=== PATIENT | male | born 1985 | race Caucasian/White ===

== ENCOUNTER 2022-11-21 00:16 | Emergency (ER) | payer BC, SELFPAY ==
[2022-11-21 00:18] VITALS: BP 153/101; PULSE 85; RESP 18; TEMP 36.8; O2SAT 97; BMI 31.5
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
--- NOTE | 2022-11-21 00:55 | CT_ITS ---
The [address] [address] Patient Name: ESTRADA REINA MRN: [id number] date: 1985 Sex: M Assigned Patient Location: ER Current Patient Location: ER Accession/Order Number: [id number] Exam Date: 11/21/2022 01:20 Report Date: 11/21/2022 01:49 At the request of: LORIE MARTINEZ Procedure: CT chest w con EXAMINATION: CT chest w con HISTORY: trauma COMPARISON: No relevant comparison available. TECHNIQUE: Multi-planar CT images were obtained without and/or with IV contrast as indicated by examination type. Axial, Coronal, and Sagittal images. Dose reduction techniques were achieved by using automated exposure control and/or adjustment of mA and/or kV according to patient size and/or use of iterative reconstruction technique. FINDINGS: LUNGS: No visible pulmonary disease. PLEURA: No mass, effusion, or pneumothorax. VASCULATURE: No abnormality. HELENE: No mass or adenopathy. MEDIASTINUM: No mass or adenopathy. CARDIAC: No enlargement, pericardial thickening, or significant calcification. AORTA: No aneurysm or dissection. CHEST WALL: No mass or axillary adenopathy. BONES: Nondisplaced fracture through body of left scapula. LIMITED ABDOMEN: No suspicious findings Limited images of the upper abdomen. OTHER: Negative. CT/CT chest w con IMPRESSION: 1. Acute, nondisplaced left scapular fracture. Electronically authenticated by: JAZIEL VIDALES Date: 11/21/2022 01:49
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
--- NOTE | 2022-11-21 00:55 | CT_ITS ---
The [address] [address] Patient Name: ESTRADA REINA MRN: [id number] date: 1985 Sex: M Assigned Patient Location: ER Current Patient Location: ER Accession/Order Number: [id number] Exam Date: 11/21/2022 01:20 Report Date: 11/21/2022 01:53 At the request of: LORIE MARTINEZ Procedure: CT cervical spine wo con EXAMINATION: CT cervical spine wo con HISTORY: trauma COMPARISON: No relevant comparison available. TECHNIQUE: Axial, Coronal, and Sagittal images were created without IV contrast. Dose reduction techniques were achieved by using automated exposure control and/or adjustment of mA and/or kV according to patient size and/or use of iterative reconstruction technique. FINDINGS: VERTEBRAL BODIES: Reversal of the normal lordotic curvature. No fracture or spondylolisthesis. FACET JOINTS: No disruption or abnormal widening. DISCS: Mild degenerative disc disease C5-C6, C6-C7. CENTRAL CANAL: Mild narrowing C6-C7 secondary to degenerative disc disease. No evidence of hemorrhage. PARASPINAL AREA: No visible mass. CT/CT cervical spine wo con IMPRESSION: 1. No appreciable acute abnormality. Mild degenerative disc disease of lower cervical spine. 2. Reversal normal lordotic curvature; positioning versus muscle spasm. Electronically authenticated by: JAZIEL VIDALES Date: 11/21/2022 01:53
[2022-11-21] MEDS: 0.9 % SODIUM CHLORIDE 1,000 ML 999 ML IV (01:11)
[2022-11-21] MEDS: FENTANYL CITRATE/PF 100 MCG/2 ML VIAL 50 MCG IV (01:11)
[2022-11-21 01:17] LABS: Basophils Absolute Auto 0.1 10^3/uL (0.0-0.1); Basophils Percent Auto 0.5 % (0.2-2.0); Eosinophils Absolute Auto 0.1 10^3/uL (0.0-0.7); Hematocrit 40.5 % (42.0-54.0); Hemoglobin 13.6 g/dL (14.0-18.0); Immature Granulocytes Abs Auto 0.03 10^3/uL (0.00-0.03); Immature Granulocytes Pct Auto 0.2 % (0.0-0.5); Lymphocytes Absolute Auto 2.4 10^3/uL (1.2-3.8); Mean Corpuscular HGB Conc 33.6 g/dL (29.9-35.2); Mean Corpuscular Hemoglobin 30.2 pg (25.9-34.0); Mean Platelet Volume 9.3 fL (9.5-13.5); Monocytes Absolute Auto 0.9 10^3/uL (0.3-0.8); Monocytes Percent Auto 7.8 % (1.7-12.0); Neutrophils Absolute Auto 8.5 10^3/uL (1.4-6.5); Neutrophils Percent Auto 70.5 % (43.0-75.0); Platelet Count 315 10^3/uL (150-450); Red Cell Distribution Width 13.6 % (11.0-15.0)
[2022-11-21 01:30] LABS: Alanine Aminotransferase 26 U/L (16-63); Albumin Globulin Ratio 1.2; Albumin Level 4.1 g/dL (3.4-5.0); Alkaline Phosphatase 55 U/L (46-116); Anion Gap 8.5; Aspartate Amino Transferase 30 U/L (15-37); BUN Creatinine Ratio 10.7; Bilirubin Total 0.4 mg/dL (0.2-1.0); Carbon Dioxide 28.3 mmol/L (21.0-32.0); Chloride 100 mmol/L (98-107); Estimated GFR (African America >60 (>=60); Estimated GFR (Non-African Ame 57 (>=60); Globulin 3.5 g/dL; Glucose 104 mg/dL (74-106); Potassium 3.8 mmol/L (3.5-5.1); Sodium 133 mmol/L (136-145); Total Protein 7.6 g/dL (6.4-8.2)
[2022-11-21 01:33] LABS: Lactate/Lactic Acid 0.8 mmol/L (0.4-2.0)
== END 2022-11-21 02:43 | disposition home or self-care (01) ==
PROVIDERS: Emergency Provider Internal Medicine; PCP Nurse Practitioner
DX: S42.102A Fracture of unspecified part of scapula, left shoulder, initial encounter for closed fracture (principal); V86.59XA Driver of other special all-terrain or other off-road motor vehicle injured in nontraffic accident, initial encounter; F17.210 Nicotine dependence, cigarettes, uncomplicated
CPT/HCPCS: 36415; 71260; 72125; 73030; 80053; 83605; 85025; 96374; 99285; Q9967

== ENCOUNTER 2023-09-09 02:32 | Emergency (ER) | payer BC, SELFPAY ==
[2023-09-09] VITALS (8 sets, daily range): BP systolic 100–163; BP diastolic 53–102; PULSE 149; TEMP 38; O2SAT 91–96
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
[2023-09-09] MEDS: LORAZEPAM 2 MG/ML VIAL IM (02:40)
[2023-09-09] MEDS: ZIPRASIDONE MESYLATE 20 MG VIAL IM (02:40)
[2023-09-09 03:26] LABS: Basophils Absolute Auto 0.1 10^3/uL (0.0-0.1); Basophils Percent Auto 0.6 % (0.2-2.0); Eosinophils Absolute Auto 0.1 10^3/uL (0.0-0.7); Hemoglobin 13.4 g/dL (14.0-18.0); Immature Granulocytes Abs Auto 0.04 10^3/uL (0.00-0.03); Immature Granulocytes Pct Auto 0.4 % (0.0-0.5); Lymphocytes Absolute Auto 1.6 10^3/uL (1.2-3.8); Lymphocytes Percent Auto 17.8 % (20.5-60.0); Mean Corpuscular HGB Conc 33.5 g/dL (29.9-35.2); Mean Corpuscular Hemoglobin 30.7 pg (25.9-34.0); Mean Corpuscular Volume 91.7 fL (80.0-94.0); Mean Platelet Volume 9.2 fL (9.5-13.5); Monocytes Absolute Auto 0.5 10^3/uL (0.3-0.8); Neutrophils Absolute Auto 6.6 10^3/uL (1.4-6.5); Neutrophils Percent Auto 74.2 % (43.0-75.0); Platelet Count 305 10^3/uL (150-450); Red Blood Count 4.36 10^6/uL (4.70-6.10); Red Cell Distribution Width 13.2 % (11.0-15.0); White Blood Count 8.9 10^3/uL (4.0-11.0)
[2023-09-09 03:42] LABS: Alanine Aminotransferase 26 U/L (16-63); Albumin Level 3.7 g/dL (3.4-5.0); Alkaline Phosphatase 55 U/L (46-116); Anion Gap 22.8; Aspartate Amino Transferase 17 U/L (15-37); BUN Creatinine Ratio 7.6; Bilirubin Total 0.4 mg/dL (0.2-1.0); Carbon Dioxide 15.9 mmol/L (21.0-32.0); Chloride 101 mmol/L (98-107); Estimated GFR (African America 55 (>=60); Estimated GFR (Non-African Ame 45 (>=60); Globulin 3.6 g/dL; Glucose 175 mg/dL (74-106); Sodium 137 mmol/L (136-145); Total Protein 7.3 g/dL (6.4-8.2)
[2023-09-09 03:44] LABS: Potassium 2.7 mmol/L (3.5-5.1)
[2023-09-09] MEDS: POTASSIUM CHLORIDE 10 MEQ ER TABLET 40 MEQ PO (04:00)
== END 2023-09-09 04:21 | disposition home or self-care (01) ==
PROVIDERS: Emergency Provider Internal Medicine; PCP Nurse Practitioner
DX: F29 Unspecified psychosis not due to a substance or known physiological condition (principal); F91.3 Oppositional defiant disorder; E87.6 Hypokalemia; F17.200 Nicotine dependence, unspecified, uncomplicated; F43.10 Post-traumatic stress disorder, unspecified
CPT/HCPCS: 36415; 80053; 85025; 96372; 99285; J2060; J3486

== ENCOUNTER 2023-09-30 16:18 | Emergency (ER) | payer BC, SELFPAY ==
[2023-09-30] VITALS (11 sets, daily range): BP systolic 136–159; BP diastolic 89–109; PULSE 66–85; TEMP 36.7; O2SAT 97–100; BMI 29.7
--- NOTE | 2023-09-30 16:36 | ED.GENADUL1 ---
HPI HPI - General Adult General Chief complaint: Dizziness Stated complaint: CP Time Seen by Provider: 09/30/23 16:35 Source: patient Mode of arrival: ambulance Limitations: no limitations History of Present Illness HPI narrative: This patient is here from [facility] for complaint of feeling some fluttering and skipping in his chest. He was told a number years ago at a different institution that when he was 49 years old he would need a new heart valve. Supposed to followed up with his cardiology doctor in the [place] area but has not done so. He denies any use of illicit drugs such as cocaine crack or amphetamines. He said that he smokes marijuana and uses alcohol. He states he has never been told that he had a high blood pressure. He states he has not had any alcohol now for 3 weeks Related Data Home Medications ?Medication ?Instructions ?Recorded ?Confirmed ziprasidone HCl PO 09/30/23 Allergies Allergy/AdvReac Type Severity Reaction Status Date / Time No Known Drug Allergies Allergy Verified 09/30/23 16:24 Opioid HPI Opioid Management Most Recent Opioid Data: Last Pain Scale 8 11/21/22 01:11 PFSH PFSH Social History Smoking status: Current every day smoker Exam Narrative Exam Narrative: Twelve-lead EKG was done on arrival and shows some nonspecific ST and T wave changes about the chest wall precordial leads. There is no ST segment elevation. There are changes consistent with per probably early repolarization. No ventricular ectopy is noted. He is awake alert pleasant not diaphoretic or clammy. Does not smell of alcohol today. His lungs are clear with no wheeze rales or rhonchi heart sounds were listened at 4 different listening posts and I hear no murmur. There is no gallop or rub. Extremities show no evidence of phlebitis edema ropiness or tenderness in the legs. Constitutional Vital Signs, click to edit/add: Last Vital Signs Temp 98.1 F 09/30/23 16:18 Pulse 72 09/30/23 16:18 Resp 18 09/30/23 16:18 BP 140/90 09/30/23 16:18 Pulse Ox 98 09/30/23 16:18 O2 Del Method Room Air 09/30/23 16:18 Course Vital Signs Vital signs: Vital Signs Temperature 98.1 F 09/30/23 16:18 Pulse Rate 72 09/30/23 16:18 Respiratory Rate 18 09/30/23 16:18 Blood Pressure 140/90 09/30/23 16:18 Pulse Oximetry 98 09/30/23 16:18 Oxygen Delivery Method Room Air 09/30/23 16:18 Temperature 98.1 F 09/30/23 16:18 Pulse Rate 72 09/30/23 16:18 Respiratory Rate 18 09/30/23 16:18 Blood Pressure 140/90 09/30/23 16:18 Pulse Oximetry 98 09/30/23 16:18 Oxygen Delivery Method Room Air 09/30/23 16:18 Medical Decision Making MDM Narrative Medical decision making narrative: This patient was under cardiac monitoring until 1900 hrs. He did not have any of the arrhythmia. Cardiac troponin it was normal. Routine electrolytes were better in fact his potassium was better than he was here the last time. There is no clinical indication of pericarditis. Chest x-ray was negative as well. He describes simple palpitations I do not believe there is emergency medical condition that warrants further investigation at this time Discharge Plan Discharge Stand Alone Forms: Portal Instructions Chief Complaint: Dizziness Clinical Impression: Heart palpitations Patient Disposition: Home, Self-Care Time of Disposition Decision: 18:54 Prescriptions / Home Meds: No Action ziprasidone HCl [Geodon] PO Print Language: Turkish Additional Instructions: Resume previous treatments medications and therapies Referrals: ROSSANA ZACARIAS [Primary Care Provider] - 1 week
--- NOTE | 2023-09-30 16:39 | XR_ITS ---
[address] [address] Patient Name: ESTRADA REINA MRN: [id number] date: 1985 Sex: M Assigned Patient Location: ER Current Patient Location: ER Accession/Order Number: [id number] Exam Date: 09/30/2023 17:20 Report Date: 09/30/2023 17:33 At the request of: ARMANI MCGOVERN Procedure: XR chest 1V Exam: Radiographs: XR chest 1V Reason for exam: Palpitations Comparison: CT scan dated 11/21/2022 XR/XR chest 1V IMPRESSION: Unremarkable chest x-ray. Electronically authenticated by: ROSY MEEHAN Date: 09/30/2023 17:33
--- NOTE | 2023-09-30 16:39 | ECG_ITS ---
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
[2023-09-30 16:55] LABS: Basophils Percent Auto 0.4 % (0.2-2.0); Eosinophils Absolute Auto 0.1 10^3/uL (0.0-0.7); Eosinophils Percent Auto 1.2 % (0.9-7.0); Hematocrit 41.6 % (42.0-54.0); Hemoglobin 13.9 g/dL (14.0-18.0); Immature Granulocytes Abs Auto 0.02 10^3/uL (0.00-0.03); Immature Granulocytes Pct Auto 0.3 % (0.0-0.5); Lymphocytes Absolute Auto 1.7 10^3/uL (1.2-3.8); Lymphocytes Percent Auto 24.7 % (20.5-60.0); Mean Corpuscular HGB Conc 33.4 g/dL (29.9-35.2); Mean Corpuscular Hemoglobin 31.2 pg (25.9-34.0); Mean Corpuscular Volume 93.3 fL (80.0-94.0); Mean Platelet Volume 9.5 fL (9.5-13.5); Monocytes Absolute Auto 0.4 10^3/uL (0.3-0.8); Monocytes Percent Auto 6.1 % (1.7-12.0); Neutrophils Absolute Auto 4.5 10^3/uL (1.4-6.5); Neutrophils Percent Auto 67.3 % (43.0-75.0); Platelet Count 340 10^3/uL (150-450); Red Blood Count 4.46 10^6/uL (4.70-6.10); Red Cell Distribution Width 12.6 % (11.0-15.0); White Blood Count 6.8 10^3/uL (4.0-11.0)
[2023-09-30 17:14] LABS: D Dimer 0.19 mg/L FEU (<=0.59)
[2023-09-30 17:24] LABS: Alanine Aminotransferase 22 U/L (16-63); Albumin Globulin Ratio 1.3; Albumin Level 4.1 g/dL (3.4-5.0); Alkaline Phosphatase 52 U/L (46-116); Anion Gap 10.9; Aspartate Amino Transferase 14 U/L (15-37); BUN Creatinine Ratio 10.5; Bilirubin Total 0.4 mg/dL (0.2-1.0); Calcium 9.6 mg/dL (8.5-10.1); Carbon Dioxide 26.9 mmol/L (21.0-32.0); Chloride 102 mmol/L (98-107); Estimated GFR (African America >60 (>=60); Estimated GFR (Non-African Ame >60 (>=60); Globulin 3.2 g/dL; Glucose 108 mg/dL (74-106); Potassium 3.8 mmol/L (3.5-5.1); Sodium 136 mmol/L (136-145); Total Protein 7.3 g/dL (6.4-8.2); Troponin I High Sensitivity 6.1 pg/mL (4.0-76.1)
== END 2023-09-30 20:15 | disposition home or self-care (01) ==
PROVIDERS: Emergency Provider Emergency Medicine Emergency Medical Services; PCP Nurse Practitioner
DX: R00.2 Palpitations (principal); F12.90 Cannabis use, unspecified, uncomplicated; F10.90 Alcohol use, unspecified, uncomplicated; F17.200 Nicotine dependence, unspecified, uncomplicated
CPT/HCPCS: 36415; 71045; 80053; 83880; 84484; 85025; 85378; 93005; 99285

== ENCOUNTER 2023-12-15 09:38 | Outpatient (OUT) | payer BC, SELFPAY ==
--- OUTSIDE RECORDS SUMMARY | 2023-12-15 09:54 | XMS_ITS | CCD ---
Author Organization [facility] Care Team Providers Care Chemical Processing Equipment Repairer Name Role Phone MARKER, NAY Attending Unavailable MARKER, NAY Consulting Unavailable MARKER, NAY Admitting Unavailable ROSSANA ZACARIAS Primary Care Unavailable Iván Lowe Unavailable DO Iván Lowe Attending Provider NON STAFF Primary Care Provider Unavailabl e DO Iván Lowe Attending Provider NON STAFF Primary Care Provider Unavailabl e NO FAMILY, PHYSICIAN Primary Care Provider Unava ilable DO Nuno Jones Emergency Provider [phone] NO FAMILY, PHYSICIAN Primary Care Provider Unava ilable DO Nuno Jones Emergency Provider [phone] MD Lloyd Musa Admit Provider [phone] MD Musa Desai Attending Provider ROSSANA ZACARIAS Attending Unavailable ROSSANA ZACARIAS Referring Unavailable ROSSANA ZACARIAS Primary Care Unavailable ROSSANA ZACARIAS Primary Care Unavailable GURPREET STRATTON Attending Unavailable GURPREET STRATTON Attending Unavailable GURPREET STRATTON Referring Unavailable ROSSANA ZACARIAS Primary Care Unavailable VALERIO MENDEZ Attending Unavailable NON STAFF Primary Care Unavailable Iván Lowe Admitting Unavailable Iván Lowe Attending Unavailable NON STAFF Primary Care Unavailable Iván Lowe Admitting Unavailable Iván Lowe Attending Unavailable NO FAMILY, PHYSICIAN Primary Care Unavailable Arnoldo Shay Admitting Unavailab le Arnoldo Shay Attending Unavailab le NO FAMILY, PHYSICIAN Primary Care Unavailable Musa Desai Admitting Unavailable Arnoldo Shay Attending Unavailab le NON STAFF Primary Care Unavailable Iván Lowe Admitting Unavailable Iván Lowe Attending Unavailable Medications Current Medications Medication Drug Class(es) Dates Sig (Normalized) Sig (Original) Acetaminophen / HYDROcodone (2 sources) Opioid Agonist Gaylord Active ergocalciferol 1.25 mg oral capsule (1 source) Provitamin D2 Compound Start: 09-15-2023 take 1250 ug by mouth every week Ergocalciferol (Vitamin D2) Active 1250 MCG PO Q7D 5 September 15, 2023 12:00am oxyCODONE hydrochloride 5 mg oral tablet (2 sources) Opioid Agonist Start: 11-23-2022 take 1 tablet by mouth every six hours oxyCODONE HCl 5 MG 1 tablet as needed Orally every 6 hrs for 7 days Oct, Active traZODone hydrochloride 50 mg oral tablet (1 source) Serotonin Reuptake Inhibitor Start: 09-15-2023 take 50 mg by mouth once daily at bedtime Trazodone Active 50 MG PO Daily at bedtime September 15, 2023 12:00am ziprasidone 20 mg oral capsule (1 source) Atypical Antipsychotic Start: 09-15-2023 take 20 mg by mouth once daily at bedtime Ziprasidone Hcl Active 20 MG PO Daily at bedtime September 15, 2023 12:00am Completed/Discontinued Medications Medication Drug Class(es) Dates Sig (Normalized) Sig (Original) [id number] 200 actuat albuterol 0.09 mg/actuat metered dose inhaler (3 sources) beta2-Adrenergic Agonist Start: 4 End: 4 take 1 puff(s) by inhalation every four hours Albuterol Sulfate Discontinued 2 PUFF INHALATION Q4H 1 June 02, 2023 1:00am September 09, 2023 6:51pm dextromethorphan hydrobromide 1.5 mg/ml / pyrilamine maleate 1.5 mg/ml oral solution (3 sources) Uncompetitive B-frdglc-H-asparta te Receptor Antagonist, Sigma-1 Agonist Start: 4 End: 4 take 1 mL by mouth every eight hours Pyrilamine-Dextrometh orphan ([place] Dm) 7.5-7.5 mg/5 mL liquid Discontinued 10 ML PO Every 8 hours 150 5 June 02, 2023 1:00am September 09, 2023 6:51pm methylPREDNISolone 4 mg oral tablet (6 sources) Corticosteroid Start: 4 End: 4 take 1 tablet by mouth once Methylprednisolone (Medrol (Alex)) 4 mg tablets,dose pack Discontinued 0 PO per package directions June 02, 2023 1:00am September 09, 2023 6:51pm PO PER PKG DIR for 6 days Start: 03-18-2022 methylPREDNISo lone 4 MG as directed Orally Once a day for 6 days Feb, Not-Taking Problems Problem Classification Problem Date Documented Date Episodic/Chronic Fluid and electrolyte disorders (1 source) Dehydration; Translations: [DEHYDRATION] Onset: 05-22-2020 Episodic Fracture of upper limb (3 sources) Nondisplaced fracture of body of scapula, left shoulder, initial encounter for closed fracture Episodic Headache; including migraine (1 source) Migraine without aura, not intractable, with status migrainosus; Translations: [Migraine without aura, not intractable, with status migrainosus] Onset: 10-13-2023 Chronic Headache; including migraine (2 sources) Headache Onset: 10-26-2023 Episodic Headache; including migraine (1 source) Headache; including migraine; Translations: [Headache, unspecified] Onset: 10-26-2023 Immunizations and screening for infectious disease (3 sources) Suspected clinical finding; Translations: [Contact with and (suspected) exposure to other viral communicable diseases] Episodic Mood disorders (5 sources) Depressive disorder; Translations: [Depression] 09-09-2023 Chronic Nausea and vomiting (3 sources) Nausea with vomiting, unspecified; Translations: [NAUSEA WITH VOMITING UNSPECIFIED] Onset: 05-20-2020 Episodic Noninfectious gastroenteritis (1 source) Noninfective gastroenteritis and colitis, unspecified; Translations: [NONINFECTIVE GE AND COLITIS UNS] Onset: 05-22-2020 Episodic Residual codes; unclassified (1 source) Altered mental status, unspecified; Translations: [Altered mental status, unspecified] Onset: 10-13-2023 Episodic Schizophrenia and other psychotic disorders (4 sources) Psychotic disorder; Translations: [Unspecified psychosis not due to a substance or known physiological condition] Onset: 09-09-2023 09-10-2023 Chronic Substance-related disorders (1 source) Nicotine dependence, cigarettes, uncomplicated; Translations: [NICOTINE DEPEND CIGARETTES UNCOMP] Onset: 05-22-2020 Chronic Unclassified (1 source) New Patient Onset: 10-13-2023 Unclassified (1 source) Nondisplaced fracture of body of scapula, left shoulder, subsequent encounter for fracture with routine healing; Translations: [Nondisplaced fracture of body of scapula, left shoulder, subsequent encounter for fracture with routine healing] Onset: 02-11-2023 Unclassified (1 source) Nondisplaced fracture of body of scapula, left shoulder, initial encounter for closed fracture; Translations: [Nondisplaced fracture of body of scapula, left shoulder, initial encounter for closed fracture] Onset: 01-11-2023 Results Test Name Value Interpretation Reference Range Facility BASIC METABOLIC PANLon 10-25 Anion gap [Moles/Vol] 7 mmol/L Normal 5-15 [facility] Comment on above: Performed By: #### C BCA, BMP #### [facility] ([id number]) [address] [place] [address] 73655 Calcium [Mass/Vol] 9.1 mg/dL Normal 8.5-10.5 [facility] Comment on above: Performed By: #### C BCA, BMP #### [facility] ([id number]) [address] [place] [address] 87432 Chloride [Moles/Vol] 104 mmol/L Normal 98-109 [facility] Comment on above: Performed By: #### C BCA, BMP #### [facility] ([id number]) [address] [place] [address] 77138 CO2 [Moles/Vol] 26 mmol/L Normal 22-32 [facility] Comment on above: Performed By: #### C BCA, BMP #### [facility] ([id number]) [address] [place] [address] 18762 Creatinine [Mass/Vol] 1.07 mg/dL Normal 0.70-1.20 [facility] Comment on above: Result Comment: METH OD TRACEABLE TO IDMS STANDARD Performed By: #### C BCA, BMP #### [facility] ([id number]) [address] [place] [address] 04695 eGFR (CKD-EPI) NON-RACE DEPENDENT >90 Normal >59 [facility] Comment on above: Result Comment: Reported eGFR is based on the CKD-EPI 2020 equation that does not use a race coefficient. Performed By: #### C VENU, BMP #### [facility] ([id number]) [address] [place] [address] 24683 Glucose [Mass/Vol] 102 mg/dL High 65-99 [facility] Comment on above: Performed By: #### C VENU, BMP #### [facility] ([id number]) [address] [place] [address] 61707 Potassium [Moles/Vol] 4.2 mmol/L Normal 3.5-5.0 [facility] Comment on above: Performed By: #### C VENU, BMP #### [facility] ([id number]) [address] [place] [address] 21979 Sodium [Moles/Vol] 137 mmol/L Normal 134-146 [facility] Comment on above: Performed By: #### C BCA, BMP #### [facility] ([id number]) [address] [place] [address] 75610 Urea nitrogen [Mass/Vol] 20 mg/dL Normal 5-23 [facility] Comment on above: Performed By: #### C BCA, BMP #### [facility] ([id number]) [address] [place] [address] 90507 CBC AND AUTO DIFFon 10-26-19 24 ABSOLUTE BASOPHIL 0.0 X10E9/L Normal 0.0-0.2 [facility] Comment on above: Performed By: #### C BCA, BMP #### [facility] ([id number]) [address] [place] [address] 62305 ABSOLUTE NEUTROPHIL 3.8 X10E9/L Normal 1.5-6.6 [facility] Comment on above: Performed By: #### C VENU, BMP #### [facility] ([id number]) [address] [place] [address] 21181 Basophils/100 WBC (Bld) 0.8 % Normal [facility] Comment on above: Performed By: #### C VENU, BMP #### [facility] ([id number]) [address] [place] [address] 78466 Eosinophils (Bld) [#/Vol] 0.1 10*3/uL Normal 0.0-0.4 [facility] Comment on above: Performed By: #### C VENU, BMP #### [facility] ([id number]) [address] [place] [address] 19460 Eosinophils/100 WBC (Bld) 1.7 % Normal [facility] Comment on above: Performed By: #### C VENU, BMP #### [facility] ([id number]) [address] [place] [address] 33115 Erythrocyte distribution width (RBC) [Ratio] 13.0 % Normal 11.5-15.0 [facility] Comment on above: Performed By: #### C VENU, BMP #### [facility] ([id number]) [address] [place] [address] 01428 Hematocrit (Bld) [Volume fraction] 39.6 % Normal 39-49 [facility] Comment on above: Performed By: #### C VENU, BMP #### [facility] ([id number]) [address] [place] [address] 49266 Hemoglobin (Bld) [Mass/Vol] 13.6 g/dL Normal 13.0-17.0 [facility] Comment on above: Performed By: #### C VENU, BMP #### [facility] ([id number]) [address] [place] [address] 01633 Lymphocytes (Bld) [#/Vol] 1.6 10*3/uL Normal 1.0-3.5 [facility] Comment on above: Performed By: #### C VENU, BMP #### [facility] ([id number]) [address] [place] [address] 23670 Lymphocytes/100 WBC (Bld) 26.9 % Normal [facility] Comment on above: Performed By: #### C VENU, BMP #### [facility] ([id number]) [address] [place] [address] 50156 MCH (RBC) [Entitic mass] 31.1 pg Normal 27-34 [facility] Comment on above: Performed By: #### C VENU, BMP #### [facility] ([id number]) [address] [place] [address] 68482 MCHC (RBC) [Mass/Vol] 34.2 g/dL Normal 32-36 [facility] Comment on above: Performed By: #### C VENU, BMP #### [facility] ([id number]) [address] [place] [address] 88511 MCV (RBC) [Entitic vol] 91 fL Normal 80-100 [facility] Comment on above: Performed By: #### C VENU, BMP #### [facility] ([id number]) [address] [place] [address] 43307 Monocytes (Bld) [#/Vol] 0.5 10*3/uL Normal 0-0.9 [facility] Comment on above: Performed By: #### C BCA, BMP #### [facility] ([id number]) [address] [place] [address] 71205 Monocytes/100 WBC (Bld) 8.3 % Normal [facility] Comment on above: Performed By: #### C BCA, BMP #### [facility] ([id number]) [address] [place] [address] 81081 Neutrophils/100 WBC (Bld) 62.3 % Normal [facility] Comment on above: Performed By: #### C BCA, BMP #### [facility] ([id number]) [address] [place] [address] 88245 Platelet mean volume (Bld) [Entitic vol] 7.7 fL Normal 7-12 [facility] Comment on above: Performed By: #### C VENU, BMP #### [facility] ([id number]) [address] [place] [address] 51154 Platelets (Bld) [#/Vol] 310 10*3/uL Normal 150-450 [facility] Comment on above: Performed By: #### C VENU, BMP #### [facility] ([id number]) [address] [place] [address] 74185 RBC COUNT 4.36 X10E12/L Normal 4.10-5.70 [facility] Comment on above: Performed By: #### C BCA, BMP #### [facility] ([id number]) [address] [place] [address] 97048 WBC (Bld) [#/Vol] 6.1 10*3/uL Normal 4.0-11.0 [facility] Comment on above: Performed By: #### C BCA, BMP #### [facility] ([id number]) [address] [place] [address] BRAIN WO CONTon 4 CT BRAIN WO CONT CT BRAIN WO CONT HISTORY: A 38-year-old male with the history of the chronic headaches and increase in frequency. EXAM/TECHNIQUE: Multidetector spiral CT scan of brain is performed. Multiplanar reconstruction images are reformatted. All CT scans at this facility use dose modulation, iterative reconstruction, and/or weight based dosing when appropriate to reduce radiation dose to as low as reasonably achievable. COMPARISON: None available. FINDINGS: The ventricular system is normal in size and configuration. There is normal differentiation of moss and white matters. There is no evidence of intracranial hemorrhage or acute pathology. The cerebellum and brainstem are unremarkable. No mass effect, midline shift of the structures or extra-axial fluid collections are noted. The calvarium is intact. The visualized paranasal sinuses and mastoid air cells are clear. IMPRESSION: * No evidence of intracranial hemorrhage or acute pathology. Finalized by Jignesh Patel MD on 10/26/2023 10:05 AM Normal [facility] Alanine aminotransferase [En zymatic activity/volume] in Serum or PlasmaOrdered By: Arnoldo Shay on 09-13-2023 ALT [Catalytic activity/Vol] 20 U/L Normal 7-52 [facility] Comment on above: Performed By: #### C BC, CMP #### [facility] [address] [place] [address] [place] Albumin [Mass/volume] in Ser um or Plasma by Bromocresol green (BCG) dye binding methoOrdered By: Arnoldo Shay on 09-13-2023 Albumin BCG dye [Mass/Vol] 4.4 g/dL 3.5-5.7 [facility] Alkaline phosphatase [Enzyma tic activity/volume] in Serum or PlasmaOrdered By: Arnoldo Shay on 09-13-2023 ALP [Catalytic activity/Vol] 43 U/L Normal 34-104 [facility] Comment on above: Performed By: #### C BC, CMP #### [facility] [address] [place] [address] [place] Aspartate aminotransferase [ Enzymatic activity/volume] in Serum or PlasmaOrdered By: Arnoldo Shay on 09-13-2023 AST [Catalytic activity/Vol] 24 U/L Normal 13-39 [facility] Comment on above: Performed By: #### C BC, CMP #### [facility] [address] [place] [address] [place] Automated basophil %Ordered By: Arnoldo Shay on 09-13-2023 Basophils/100 WBC (Bld) 0.7 % Normal . [facility] Comment on above: Performed By: #### C BC, CMP #### [address] Automated basophil countOrde red By: Arnoldo Shay on 09-13-2023 Basophils (Bld) [#/Vol] 0.1 10*3/uL Normal 0.0-0.2 [facility] Comment on above: Result Comment: PERF ORMED BY: [place] [address] PATHOLOGIST HEARING SCREENER WENDY HIDALGO M.D. Performed By: #### C BC, CMP #### [address] Automated blood monocyte cou ntOrdered By: Arnoldo Shay on 09-13-2023 Monocytes (Bld) [#/Vol] 0.6 10*3/uL Normal 0.0-0.8 [facility] Comment on above: Performed By: #### C BC, CMP #### [address] Automated eosinophil %Ordere d By: Arnoldo Shay on 09-13-2023 Eosinophils/100 WBC (Bld) 1.5 % Normal . [facility] Comment on above: Performed By: #### C BC, CMP #### [address] Automated eosinophil countOr dered By: Arnoldo Shay on 09-13-2023 Eosinophils (Bld) [#/Vol] 0.1 10*3/uL Normal 0.0-0.45 [facility] Comment on above: Performed By: #### C BC, CMP #### [address] Automated monocyte %Ordered By: Arnoldo Shay on 09-13-2023 Monocytes/100 WBC (Bld) 8.3 % Normal . [facility] Comment on above: Performed By: #### C BC, CMP #### [address] Automated neutrophil %Ordere d By: Arnoldo Shay on 09-13-2023 Neutrophils/100 WBC (Bld) 58.3 % Normal . [facility] Comment on above: Performed By: #### C BC, CMP #### [facility] [address] Bilirubin.total [Mass/volume ] in Serum or PlasmaOrdered By: Arnoldo Shay on 09-13-2023 Bilirubin [Mass/Vol] 0.9 mg/dL Normal 0.3-1.0 [facility] Comment on above: Performed By: #### C BC, CMP #### [address] Calcium [Mass/volume] in Ser um or PlasmaOrdered By: Arnoldo Shay on 09-13-2023 Calcium [Mass/Vol] 9.7 mg/dL Normal 8.6-10.3 [facility] Comment on above: Performed By: #### C BC, CMP #### [address] Carbon dioxide, total [Moles /volume] in Serum or PlasmaOrdered By: Arnoldo Shay on 09-13-2023 CO2 [Moles/Vol] 28.7 mmol/L Normal 21.0-31.0 [facility] Comment on above: Performed By: #### C BC, CMP #### [place] [address] [place] Chloride [Moles/volume] in S mo or PlasmaOrdered By: Arnoldo Shay on 09-13-2023 Chloride [Moles/Vol] 102 mmol/L Normal 98-107 [facility] Comment on above: Performed By: #### C BC, CMP #### [address] Complete Blood Count Auto Di ffon 09-13-2023 Mean Corpuscular HGB Conc 34.3 g/dL Normal 32.5-35.6 [facility] Comment on above: Performed By: #### C BC, CMP #### [address] NRBC% 0.0 /100{WBC} Normal 0-0.5 [facility] Comment on above: Performed By: #### C BC, CMP #### [address] Comprehensive Metabolic Pane alley 09-13-2023 Albumin [Mass/Vol] 4.4 g/dL Normal 3.5-5.7 [facility] Comment on above: Performed By: #### C BC, CMP #### [address] Creatinine Clr Calc Pharmacy 106.70 Normal [facility] Comment on above: Result Comment: PERF ORMED BY: [place] [address] PATHOLOGIST HEARING SCREENER WENDY HIDALGO M.D. Performed By: #### C BC, CMP #### [address] GFR/1.73 sq M.predicted MDRD (S/P/Bld) [Vol rate/Area] mL/min/{1.73_m2} Normal [facility] Comment on above: Performed By: #### C BC, CMP #### [address] Creatinine [Mass/volume] in Serum or PlasmaOrdered By: Arnoldo Shay on 09-13-2023 Creatinine [Mass/Vol] 1.18 mg/dL Normal 0.70-1.30 [facility] Comment on above: Performed By: #### C BC, CMP #### [address] Erythrocyte distribution wid th [Ratio] by Automated countOrdered By: Arnoldo Shay on 09-13-2023 Erythrocyte distribution width (RBC) [Ratio] 13.9 % Normal 12.0-14.8 [facility] Comment on above: Performed By: #### C JESSA, CMP #### [facility] [address] Erythrocytes [#/volume] in B lood by Automated countOrdered By: Arnoldo Shay on 09-13-2023 RBC (Bld) [#/Vol] 4.54 10*6/uL Normal 3.90-5.60 [facility] Comment on above: Performed By: #### C JESSA, CMP #### [facility] [address] [place] [address] [place] Glucose [Mass/volume] in Ser um or PlasmaOrdered By: Arnoldo Shay on 09-13-2023 Glucose [Mass/Vol] 89 mg/dL Normal 70-100 [facility] Comment on above: ADA recommended refe rence rangeRandom Glucose Reference Range is dependent on time and content of last meal. Glucose of more than 200 mg/dL in a nonstressed, ambulatory subject supports the diagnosis of Diabetes Mellitus. Result Comment: [place] om Glucose Reference Range is dependent on time and content of last meal. Glucose of more than 200 mg/dL in a nonstressed, ambulatory subject supports the diagnosis of Diabetes Mellitus. ADA recommended reference range Performed By: #### C JESSA, CMP #### [facility] [address] [place] [id number] [place] Hematocrit [Volume Fraction] of Blood by Automated countOrdered By: Arnoldo Shay on 09-13-2023 Hematocrit (Bld) [Volume fraction] 41.6 % Normal 38.8-50.0 [facility] Comment on above: Performed By: #### C JESSA, CMP #### [facility] [address] [place] [id number] [place] Hemoglobin [Mass/volume] in BloodOrdered By: Arnoldo Shay on 09-13-2023 Hemoglobin (Bld) [Mass/Vol] 14.3 g/dL Normal 13.0-17.0 [facility] Comment on above: Performed By: #### C JESSA, JARETH #### [address] Leukocytes [#/volume] correc ofe for nucleated erythrocytes in Blood by Automated counOrdered By: Arnoldo Shay on 09-13-2023 WBC corrected for nucl RBC Auto (Bld) [#/Vol] 7.7 10*3/uL 4.1-10.5 [facility] Leukocytes [#/volume] in Blo od by Automated countOrdered By: Arnoldo Shay on 09-13-2023 WBC (Bld) [#/Vol] 7.7 10*3/uL Normal 4.1-10.5 [facility] Comment on above: Performed By: #### C BC, CMP #### [address] Lymphocytes [#/volume] in Bl ood by Automated countOrdered By: Arnoldo Shay on 09-13-2023 Lymphocytes (Bld) [#/Vol] 2.4 10*3/uL Normal 1.00-4.8 [facility] Comment on above: Performed By: #### C BC, CMP #### [address] Lymphocytes/100 leukocytes i n Blood by Automated countOrdered By: Arnoldo Shay on 09-13-2023 Lymphocytes/100 WBC (Bld) 31.2 % Normal . [facility] Comment on above: Performed By: #### C BC, CMP #### [place] [address] [place] MCH [Entitic mass] by Automa ofe countOrdered By: Arnoldo Shay on 09-13-2023 MCH (RBC) [Entitic mass] 31.4 pg Normal 27.5-35.2 [facility] Comment on above: Performed By: #### C BC, CMP #### [address] MCHC Auto (RBC) [Mass/Vol]Or dered By: Arnoldo Shay on 09-13-2023 MCHC (RBC) [Mass/Vol] 34.3 g/dL 32.5-35.6 [facility] MCV [Entitic volume] by Auto mated countOrdered By: Arnoldo Shay on 09-13-2023 MCV (RBC) [Entitic vol] 91.6 fL Normal 83.5-101 [facility] Comment on above: Performed By: #### C BC, CMP #### [facility] [address] Neutrophils [#/volume] in Bl ood by Automated countOrdered By: Arnoldo Shay on 09-13-2023 Neutrophils (Bld) [#/Vol] 4.5 10*3/uL Normal 1.8-7.7 [facility] Comment on above: Performed By: #### C BC, CMP #### [facility] [address] No Panel InformationOrdered By: Arnoldo Shay on 09-13-2023 Estimated GFR (CKD-EPI) > 60.0 mL/Min [facility] Creatinine Clearance (Chem 106.70 [facility] Nucleated erythrocytes [Pres ence] in Blood by Automated countOrdered By: Arnoldo Shay on 09-13-2023 Nucleated RBC Auto Ql (Bld) 0.0 /100{WBC} 0-0.5 [facility] Platelet mean volume [Entiti c volume] in Blood by Automated countOrdered By: Arnoldo Shay on 09-13-2023 Platelet mean volume (Bld) [Entitic vol] 7.5 fL Normal 6.6-10.1 [facility] Comment on above: Performed By: #### C BC, CMP #### [facility] [address] Platelets [#/volume] in Bloo d by Automated countOrdered By: Arnoldo Shay on 09-13-2023 Platelets (Bld) [#/Vol] 317 10*3/uL Normal 150-450 [facility] Comment on above: Performed By: #### C BC, CMP #### [facility] [address] [place] [address] Potassium [Moles/volume] in Serum or PlasmaOrdered By: Arnoldo Shay on 09-13-2023 Potassium [Moles/Vol] 3.9 mmol/L Normal 3.5-5.1 [facility] Comment on above: Performed By: #### C BC, CMP #### [address] Protein [Mass/volume] in Ser um or PlasmaOrdered By: Arnoldo Shay on 09-13-2023 Protein [Mass/Vol] 6.8 g/dL Normal 6.4-8.9 [facility] Comment on above: Performed By: #### C BC, CMP #### [address] Serum globulin measurement b y calculation (mass/volume)Ordered By: Arnoldo Shay on 09-13-2023 Globulin (S) [Mass/Vol] 2.4 g/dL Normal [facility] Comment on above: Performed By: #### C BC, CMP #### [address] [address] Serum or plasma albumin/glob ulin mass ratioOrdered By: Arnoldo Shay on 09-13-2023 Albumin/Globulin [Mass ratio] 1.8 {ratio} Normal [facility] Comment on above: Performed By: #### C BC, CMP #### [address] Serum or plasma anion gap de terminationOrdered By: Arnoldo Shay on 09-13-2023 Anion gap [Moles/Vol] 11.2 mmol/L Normal 6.0-15.0 [facility] Comment on above: Performed By: #### C BC, CMP #### [place] [address] [place] Sodium [Moles/volume] in Ser um or PlasmaOrdered By: Arnoldo Shay on 09-13-2023 Sodium [Moles/Vol] 138 mmol/L Normal 136-145 [facility] Comment on above: Performed By: #### C BC, CMP #### [facility] [address] [place] [address] [place] Urea nitrogen [Mass/volume] in Serum or PlasmaOrdered By: Arnoldo Shay on 09-13-2023 Urea nitrogen [Mass/Vol] 12 mg/dL Normal 7-25 [facility] Comment on above: Performed By: #### C BC, CMP #### [facility] [address] [place] [address] [place] Bilirubin Test strip Ql (U)O rdered By: Arnoldo Shay on 09-12-2023 Bilirubin Ql (U) Negative Negative [facility] Color of Urine by AutoOrdere d By: Arnoldo Shay on 09-12-2023 Color (U) Colorless Normal Yellow [facility] Comment on above: Order Comment: Name Collection Type:: Clean-Voided Midstream Performed By: #### U A #### [facility] [address] [place] [address] [place] Glucose [Mass/volume] in Uri ne by Test stripOrdered By: Arnoldo Shay on 09-12-2023 Glucose Test strip (U) [Mass/Vol] Normal mg/dL Normal [facility] Hemoglobin Test strip Ql (U) Ordered By: Arnoldo Shay on 09-12-2023 Hemoglobin Ql (U) Negative Negative [facility] Ketones [Presence] in Urine by Test stripOrdered By: Arnoldo Shay on 09-12-2023 Ketones Ql (U) Negative Normal Negative [facility] Comment on above: Order Comment: Name Collection Type:: Clean-Voided Midstream Performed By: #### U A #### [facility] [address] [place] [id number] [place] Leukocyte esterase [Presence ] in Urine by Test stripOrdered By: Arnoldo Shay on 09-12-2023 Leukocyte esterase Test strip Ql (U) Negative Normal Negative [facility] Comment on above: Order Comment: Name Collection Type:: Clean-Voided Midstream Performed By: #### U A #### [facility] [address] [place] [address] [place] Nitrite Test strip Ql (U)Ord ered By: Arnoldo Shay on 09-12-2023 Nitrite Ql (U) Negative Negative [facility] Protein Test strip (U) [Mass /Vol]Ordered By: Arnoldo Shay on 09-12-2023 Protein (U) [Mass/Vol] Negative Negative [facility] Specific gravity Test strip (U) [Rel density]Ordered By: Arnoldo Shay on 09-12-2023 Specific gravity (U) [Rel density] 1.003 1.001-1.030 [facility] Urinalysison 09-12-2023 Bilirubin,Urine Negative Normal Negative [facility] Comment on above: Order Comment: Name Collection Type:: Clean-Voided Midstream Performed By: #### U A #### [place] [address] [place] Glucose Ql (U) Normal Normal Normal [facility] Comment on above: Order Comment: Name Collection Type:: Clean-Voided Midstream Performed By: #### U A #### [place] [address] [place] Nitrite,Urine Negative Normal Negative [facility] Comment on above: Order Comment: Name Collection Type:: Clean-Voided Midstream Performed By: #### U A #### [facility] [address] [place] [address] [place] Occult Blood,Urine Negative Normal Negative [facility] Comment on above: Order Comment: Name Collection Type:: Clean-Voided Midstream Result Comment: PERF ORMED BY: [place] [address] PATHOLOGIST HEARING SCREENER WENDY HIDALGO M.D. Performed By: #### U A #### [address] Protein,Urine Negative Normal Negative [facility] Comment on above: Order Comment: Name Collection Type:: Clean-Voided Midstream Performed By: #### U A #### [address] Specificy [place],Urine 1.003 Normal 1.001-1.030 [facility] Comment on above: Order Comment: Name Collection Type:: Clean-Voided Midstream Performed By: #### U A #### [address] Urobilinogen,Urine Normal Normal Normal [facility] Comment on above: Order Comment: Name Collection Type:: Clean-Voided Midstream Performed By: #### U A #### [address] Urine appearanceOrdered By: Arnoldo Shay on 09-12-2023 Appearance (U) Clear Normal Clear [facility] Comment on above: Order Comment: Name Collection Type:: Clean-Voided Midstream Performed By: #### U A #### [address] Urobilinogen Test strip (U) [Mass/Vol]Ordered By: Arnoldo Shay on 09-12-2023 Urobilinogen (U) [Mass/Vol] Normal mg/dL Normal [facility] pH of Urine by Test stripOrd ered By: Arnoldo Shay on 09-12-2023 pH (U) 7.0 [pH] Normal 5.0-9.0 [facility] Comment on above: Order Comment: Name Collection Type:: Clean-Voided Midstream Performed By: #### U A #### [address] Bilirubin.direct [Mass/volum e] in Serum or PlasmaOrdered By: Musa Desai on 09-10-2023 Bilirubin.direct [Mass/Vol] 0.20 mg/dL 0.03-0.18 [facility] Cholesterol [Mass/volume] in Serum or PlasmaOrdered By: Musa Desai on 09-10-2023 Cholesterol [Mass/Vol] 157 mg/dL Normal 140-200 [facility] Comment on above: Chol less than 200 m g/dl low riskChol 201-239 mg/dl borderline riskChol 240 mg/dl and greater high risk Result Comment: Chol less than 200 mg/dl low risk Chol 201-239 mg/dl borderline risk Chol 240 mg/dl and greater high risk Performed By: #### H EPATIC, [id number], LIPID, TSH3 wRFLX #### [facility] [address] Cholesterol in LDL Calc [Mas s/Vol]Ordered By: Musa Desai on 09-10-2023 Cholesterol in LDL [Mass/Vol] 69 mg/dL 0-100 [facility] Comment on above: LDL ATP III CLASSIFI CATIONLDL less than 100 mg/dL OptimalLDL 100-129 mg/dL Near or above optimalLDL 130-159 mg/dL Borderline highLDL 160-189 mg/dL HighLDL greater than 189 mg/dL Very high Cholesterol in VLDL Calc [Ma ss/Vol]Ordered By: Musa Desai on 09-10-2023 Cholesterol in VLDL [Mass/Vol] 29 mg/dL [facility] Hepatic Panelon 09-10-2023 Albumin [Mass/Vol] 4.0 g/dL Normal 3.5-5.7 [facility] Comment on above: Performed By: #### H EPATIC, [id number], LIPID, TSH3 wRFLX #### [facility] [address] [place], [place] [address] Albumin/Globulin [Mass ratio] 1.7 {ratio} Normal [facility] Comment on above: Performed By: #### H EPATIC, [id number], LIPID, TSH3 wRFLX #### [facility] [address] [place] [address] [facility] ALP [Catalytic activity/Vol] 42 U/L Normal 34-104 [facility] Comment on above: Performed By: #### H EPATIC, [id number], LIPID, TSH3 wRFLX #### [address] ALT [Catalytic activity/Vol] 17 U/L Normal 7-52 [facility] Comment on above: Performed By: #### H EPATIC, [id number], LIPID, TSH3 wRFLX #### [address] AST [Catalytic activity/Vol] 30 U/L Normal 13-39 [facility] Comment on above: Performed By: #### H EPATIC, [id number], LIPID, TSH3 wRFLX #### [address] Bilirubin [Mass/Vol] 1.0 mg/dL Normal 0.3-1.0 [facility] Comment on above: Performed By: #### H EPATIC, [id number], LIPID, TSH3 wRFLX #### [address] Bilirubin,Indirect 0.8 mg/dL Normal [facility] Comment on above: Performed By: #### H EPATIC, [id number], LIPID, TSH3 wRFLX #### [address] Bilirubin.indirect [Mass/Vol] 0.20 mg/dL High 0.03-0.18 [facility] Comment on above: Performed By: #### H EPATIC, [id number], LIPID, TSH3 wRFLX #### [address] Globulin (S) [Mass/Vol] 2.3 g/dL Normal T [facility] Comment on above: Performed By: #### H EPATIC, [id number], LIPID, TSH3 wRFLX #### [address] Protein [Mass/Vol] 6.3 g/dL Low 6.4-8.9 [facility] Comment on above: Performed By: #### H EPATIC, [id number], LIPID, TSH3 wRFLX #### [place] [address] [place] Lipid Panelon 09-10-2023 LDL Cholesterol,Calculated 69 mg/dL Normal 0-100 [facility] Comment on above: Result Comment: LDL ATP III CLASSIFICATION LDL less than 100 mg/dL Optimal LDL 100-129 mg/dL Near or above optimal LDL 130-159 mg/dL Borderline high LDL 160-189 mg/dL High LDL greater than 189 mg/dL Very high Performed By: #### H EPATIC, [id number], LIPID, TSH3 wRFLX #### [facility] [address] Triglyceride w/Reflex 149 mg/dL Normal 0-149 [facility] Comment on above: Result Comment: TRIG ATP III CLASSIFICATION TRIG less than 150 mg/dL Normal TRIG 150-199 mg/dL Borderline high TRIG 200-500 mg/dL High TRIG greater than 500 mg/dL Very high Standard traceable to the Center for Disease Conrtrol and Prevention (CDC) test method. Performed By: #### H EPATIC, [id number], LIPID, TSH3 wRFLX #### [facility] [address] [place] [address] VLDL CHOLESTEROL 29 mg/dL Normal [facility] Comment on above: Performed By: #### H EPATIC, [id number], LIPID, TSH3 wRFLX #### [place] [id number] [facility] Serum or plasma high density lipoprotein (HDL) cholesterol measurementOrdered By: Musa Desai on 09-10-2023 Cholesterol in HDL [Mass/Vol] 58 mg/dL Normal 23-92 [facility] Comment on above: HDL CHOL ATP-III CLA SSIFICATION Cardiovascular RiskHDL > or equal to 60 mg/dL LOWHDL < 40 mg/dL HIGH Result Comment: HDL CHOL ATP-III CLASSIFICATION Cardiovascular Risk HDL > or equal to 60 mg/dL LOW HDL < 40 mg/dL HIGH Performed By: #### H EPATIC, [id number], LIPID, TSH3 wRFLX #### [facility] [address] [place] [id number] [facility] Serum or plasma non-glucuron idated bilirubin measurement (mass/volume)Ordered By: Musa Desai on 09-10-2023 Bilirubin.indirect [Mass/Vol] 0.8 mg/dL [facility] Serum or plasma total choles terol/high density lipoprotein (HDL) cholesterol mass ratOrdered By: Musa Desai on 09-10-2023 Cholesterol.total/Cathie sterol in HDL [Mass ratio] 2.7 {ratio} Normal <5.0 [facility] Comment on above: Performed By: #### H EPATIC, [id number], LIPID, TSH3 wRFLX #### [facility] [address] Thyroid Stim Hormone w/Rflxo n 09-10-2023 Thyroid Stim Hormone w/Rflx 1.91 u[iU]/mL Normal 0.45-5.33 [facility] Comment on above: Performed By: #### H EPATIC, [id number], LIPID, TSH3 wRFLX ####[facility] [id number] Thyrotropin [Units/volume] i n Serum or PlasmaOrdered By: Musa Desai on 09-10-2023 TSH Qn 1.91 m[IU]/L 0.45-5.33 [facility] Triglyceride [Mass/volume] i n Serum or PlasmaOrdered By: Musa Desai on 09-10-2023 Triglyceride [Mass/Vol] 149 mg/dL 0-149 [facility] Comment on above: TRIG ATP III CLASSIF ICATIONTRIG less than 150 mg/dL NormalTRIG 150-199 mg/dL Borderline highTRIG 200-500 mg/dL High TRIG greater than 500 mg/dL Very highStandard traceable to the Center for Disease Conrtrol and Prevention (CDC) test method. Vitamin D 25 Hydroxy Totalon 09-10-2023 Vitamin D 25 Hydroxy Total 19.3 ng/mL Low 30-100 [facility] Comment on above: Result Comment: SHEY MIN D STATUS 25(OH)VITAMIN D RANGE (ng/mL) Deficient <20 Insufficient 20 to <30 Sufficient 30 to 100 Reference: Oneyda MF,Brett NC, Samuel BARRY, et al. Evaluation,treatment, and prevention of vitamin D deficiency; an Endocrine Society clinical practice guideline. JCEM. 2010; 96(7):1911-30. PERFORMED BY: [place] [address] PATHOLOGIST HEARING SCREENER WENDY HIDALGO M.D. Performed By: #### H EPATIC, [id number], LIPID, TSH3 wRFLX ####[facility] [id number] Vitamin D+Metabolites [Mass/ volume] in Serum or PlasmaOrdered By: Musa Desai on 09-10-2023 Vitamin D+Metabolites [Mass/Vol] 19.3 ng/mL 30-100 [facility] Comment on above: VITAMIN D STATUS 25( [place])VITAMIN D RANGE (ng/mL) Deficient <20 Insufficient 20 to <30Sufficient 30 to 100Reference: Oneyda MF,Brett NC, Samuel BARRY, et al. Evaluation,treatment, and prevention of vitamin D deficiency; an Endocrine Society clinical practice guideline. JCEM. 2010; 96(7):1911-30. Alanine aminotransferase [En zymatic activity/volume] in Serum or PlasmaOrdered By: Nuno Jones on 09-09-2023 ALT [Catalytic activity/Vol] 18 U/L Normal 7-52 [facility] Comment on above: Performed By: #### C MP, SCAN CBC, ETOH #### [facility] [address] [place] [id number] [place] Albumin [Mass/volume] in Ser um or Plasma by Bromocresol green (BCG) dye binding methoOrdered By: Nuno Jones on 09-09-2023 Albumin BCG dye [Mass/Vol] 4.4 g/dL 3.5-5.7 [facility] Alkaline phosphatase [Enzyma tic activity/volume] in Serum or PlasmaOrdered By: Nuno Jones on 09-09-2023 ALP [Catalytic activity/Vol] 46 U/L Normal 34-104 [facility] Comment on above: Performed By: #### C MP, SCAN CBC, ETOH #### [facility] [address] [place] [id number] [facility] Amphetamine Screen Ql (U)Ord ered By: Nuno Jones on 09-09-2023 Amphetamines Ql (U) Negative Negative [facility] Aspartate aminotransferase [ Enzymatic activity/volume] in Serum or PlasmaOrdered By: Nuno Karen on 09-09-2023 AST [Catalytic activity/Vol] 29 U/L Normal 13-39 [facility] Comment on above: Performed By: #### C MP, SCAN CBC, ETOH #### [address] Automated basophil %Ordered By: Nuno Jones on 09-09-2023 Basophils/100 WBC (Bld) 0.7 % Normal . [facility] Comment on above: Performed By: #### C MP, SCAN CBC, ETOH #### [address] Automated basophil countOrde red By: Nuno Jones on 09-09-2023 Basophils (Bld) [#/Vol] 0.1 10*3/uL Normal 0.0-0.2 [facility] Comment on above: Performed By: #### C MP, SCAN CBC, ETOH #### [address] Automated blood monocyte cou ntOrdered By: Nuno Jones on 09-09-2023 Monocytes (Bld) [#/Vol] 1.0 10*3/uL High 0.0-0.8 [facility] Comment on above: Performed By: #### C MP, SCAN CBC, ETOH #### [address] Automated eosinophil %Ordere d By: Nuno Jones on 09-09-2023 Eosinophils/100 WBC (Bld) 0.4 % Normal . [facility] Comment on above: Performed By: #### C MP, SCAN CBC, ETOH #### [address] Automated eosinophil countOr dered By: Nuno Jones on 09-09-2023 Eosinophils (Bld) [#/Vol] 0.0 10*3/uL Normal 0.0-0.45 [facility] Comment on above: Performed By: #### C MP, SCAN CBC, ETOH #### [facility] [address] Automated monocyte %Ordered By: Nuno Jones on 09-09-2023 Monocytes/100 WBC (Bld) 8.8 % Normal . [facility] Comment on above: Performed By: #### C MP, SCAN CBC, ETOH #### [facility] [address] Automated neutrophil %Ordere d By: Nuno Jones on 09-09-2023 Neutrophils/100 WBC (Bld) 72.2 % Normal . [facility] Comment on above: Performed By: #### C MP, SCAN CBC, ETOH #### [facility] [address] Bacteria [Presence] in Urine by AutomatedOrdered By: Nuno Jones on 09-09-2023 Bacteria Auto Ql (U) None seen [HPF] None Seen [facility] Barbiturates [Presence] in U rine by Screen methodOrdered By: Nuno Jones on 09-09-2023 Barbiturates Screen Ql (U) Negative Negative [facility] Benzodiazepines Screen Ql (U )Ordered By: Nuno Jones on 09-09-2023 Benzodiazepines Ql (U) Negative Negative [facility] Benzoylecgonine [Presence] i n Urine by Screen methodOrdered By: Nuno Jones on 09-09-2023 Benzoylecgonine Screen Ql (U) Negative Negative [facility] Bilirubin Test strip Ql (U)O rdered By: Nuno Jones on 09-09-2023 Bilirubin Ql (U) Negative Negative [facility] Bilirubin.total [Mass/volume ] in Serum or PlasmaOrdered By: Nuno Jones on 09-09-2023 Bilirubin [Mass/Vol] 0.7 mg/dL Normal 0.3-1.0 [facility] Comment on above: Performed By: #### C MP, SCAN CBC, ETOH #### [facility] [address] [place] [address] [place] Calcium [Mass/volume] in Ser um or PlasmaOrdered By: Nuno Jones on 09-09-2023 Calcium [Mass/Vol] 9.6 mg/dL Normal 8.6-10.3 [facility] Comment on above: Performed By: #### C MP, SCAN CBC, ETOH #### [facility] [address] Cannabinoids [Presence] in U rine by Screen methodOrdered By: Nuno Jones on 09-09-2023 Cannabinoids Screen Ql (U) Positive Negative [facility] Comment on above: These are unconfirme d results and should not be used for legal purposes. Drug Cut-Off Concentration: AMPH 1000 ng/mL SERA 200 ng/mL MARIANGEL 200 ng/mL COCM 300 ng/mL OP 300 ng/mL PCP 25 ng/mL THC 20 ng/mL Carbon dioxide, total [Moles /volume] in Serum or PlasmaOrdered By: Nuno Jones on 09-09-2023 CO2 [Moles/Vol] 29.3 mmol/L Normal 21.0-31.0 [facility] Comment on above: Performed By: #### C MP, SCAN CBC, ETOH #### [facility] [address] [place] [address] [place] Chloride [Moles/volume] in S mo or PlasmaOrdered By: Nuno Jones on 09-09-2023 Chloride [Moles/Vol] 107 mmol/L Normal 98-107 [facility] Comment on above: Performed By: #### C MP, SCAN CBC, ETOH #### [facility] [address] Color of Urine by AutoOrdere d By: Nuno Jones on 09-09-2023 Color (U) Yellow Normal Yellow [facility] Comment on above: Order Comment: Name Collection Type:: Clean-Voided Midstream Performed By: #### U RDS, ADDONUAPLUS ####[facility] [id number] Comprehensive Metabolic Pane alley 09-09-2023 Albumin [Mass/Vol] 4.4 g/dL Normal 3.5-5.7 [facility] Comment on above: Performed By: #### C MP, SCAN CBC, ETOH #### [facility] [address] [place] [address] [place] Creatinine Clr Calc Pharmacy 99.97 Normal [facility] Comment on above: Result Comment: PERF ORMED BY: [place] [address] PATHOLOGIST HEARING SCREENER WENDY HIDALGO M.D. Performed By: #### C MP, SCAN CBC, ETOH #### [place] [address] [place] GFR/1.73 sq M.predicted MDRD (S/P/Bld) [Vol rate/Area] mL/min/{1.73_m2} Normal [facility] Comment on above: Performed By: #### C MP, SCAN CBC, ETOH #### [address] Creatinine [Mass/volume] in Serum or PlasmaOrdered By: Nuno Jones on 09-09-2023 Creatinine [Mass/Vol] 1.27 mg/dL Normal 0.70-1.30 [facility] Comment on above: Performed By: #### C MP, SCAN CBC, ETOH #### [place] [address] [place] Dipstick and Microscopicon 0 09-09-2023 Bacteria,Urine None Seen Normal None Seen [facility] Comment on above: Order Comment: Name Collection Type:: Clean-Voided Midstream Performed By: #### U RDS, ADDONUAPLUS ####[address] Bilirubin,Urine Negative Normal Negative [facility] Comment on above: Order Comment: Name Collection Type:: Clean-Voided Midstream Performed By: #### U RDS, ADDONUAPLUS ####[place] [address] [place] Glucose Ql (U) Normal Normal Normal [facility] Comment on above: Order Comment: Name Collection Type:: Clean-Voided Midstream Performed By: #### U RDS, ADDONUAPLUS ####[place] [address] [place] Hyaline Casts,Urine None Normal 0-8 [facility] Comment on above: Order Comment: Name Collection Type:: Clean-Voided Midstream Performed By: #### U RDS, ADDONUAPLUS ####[place] [address] [facility] Mucus,Urine Rare Normal [facility] Comment on above: Order Comment: Name Collection Type:: Clean-Voided Midstream Result Comment: PERF ORMED BY: [facility] [address] [place] [address] PATHOLOGIST HEARING SCREENER WENDY HIDALGO M.D. Performed By: #### U RDS, ADDONUAPLUS ####[place] [address] [facility] Nitrite,Urine Negative Normal Negative [facility] Comment on above: Order Comment: Name Collection Type:: Clean-Voided Midstream Performed By: #### U RDS, ADDONUAPLUS ####[place] [address] [facility] Occult Blood,Urine Negative Normal Negative [facility] Comment on above: Order Comment: Name Collection Type:: Clean-Voided Midstream Result Comment: PERF ORMED BY: [facility] [address] [place] [address] PATHOLOGIST HEARING SCREENER WENDY HIDALGO M.D. Performed By: #### U RDS, ADDONUAPLUS ####[place] [address] [facility] Protein,Urine Negative Normal Negative [facility] Comment on above: Order Comment: Name Collection Type:: Clean-Voided Midstream Performed By: #### U RDS, ADDONUAPLUS ####[place] [address] [facility] RBC,Urine 1-2 Normal 0-4 [facility] Comment on above: Order Comment: Name Collection Type:: Clean-Voided Midstream Performed By: #### U RDS, ADDONUAPLUS ####[place] [address] [facility] Specificy [place]earing,Urine 1.018 Normal 1.001-1.030 [facility] Comment on above: Order Comment: Name Collection Type:: Clean-Voided Midstream Performed By: #### U RDS, ADDONUAPLUS ####[place] [id number] [place] [id number] [facility] Squamous Epithelial Cell,Urine 1-2 Normal 0-2 [facility] Comment on above: Order Comment: Name Collection Type:: Clean-Voided Midstream Performed By: #### U RDS, ADDONUAPLUS ####[place] [address] [facility] Urobilinogen,Urine 2 mg/dL High Normal [facility] Comment on above: Order Comment: Name Collection Type:: Clean-Voided Midstream Performed By: #### U RDS, ADDONUAPLUS ####[place] [address] [facility] WBC,Urine 5-9 High 0-4 [facility] Comment on above: Order Comment: Name Collection Type:: Clean-Voided Midstream Performed By: #### U RDS, ADDONUAPLUS ####[address] [address] [facility] Drug Screen,Urineon 09-09-19 24 Amphetamine Screen,Urine Negative Normal Negative [facility] Comment on above: Performed By: #### U RDS, ADDONUAPLUS ####[address] [address] [facility] Barbiturate Screen,Urine Negative Normal Negative [facility] Comment on above: Performed By: #### U RDS, ADDONUAPLUS ####[address] [address] [facility] Benzodiazepines Screen,Urine Negative Normal Negative [facility] Comment on above: Performed By: #### U RDS, ADDONUAPLUS ####[place] [address] [facility] Cannabinoid Screen,Urine Positive High Negative [facility] Comment on above: Result Comment: Thes e are unconfirmed results and should not be used for legal purposes. Drug Cut-Off Concentration: AMPH 1000 ng/mL SERA 200 ng/mL MARIANGEL 200 ng/mL COCM 300 ng/mL OP 300 ng/mL PCP 25 ng/mL THC 20 ng/mL PERFORMED BY: [facility] [address] [place] [address] PATHOLOGIST HEARING SCREENER WENDY HIDALGO M.D. Performed By: #### U RDS, ADDONUAPLUS ####[facility] [id number] Cocaine Screen,Urine Negative Normal Negative [facility] Comment on above: Performed By: #### U RDS, ADDONUAPLUS ####[facility] [address] Opiate Screen,Urine Negative Normal Negative [facility] Comment on above: Performed By: #### U RDS, ADDONUAPLUS ####[facility] Phencyclidine Screen,Urine Negative Normal Negative [facility] Comment on above: Performed By: #### U RDS, ADDONUAPLUS ####[facility] Epithelial cells.squamous [# /area] in Urine sediment by Automated countOrdered By: Nuno Jones on 09-09-2023 Epithelial cells.squamous Auto (Urine sed) [#/Area] 1-2 [HPF] 0-2 [facility] Erythrocyte distribution wid th [Ratio] by Automated countOrdered By: Nuno Jones on 09-09-2023 Erythrocyte distribution width (RBC) [Ratio] 14.1 % Normal 12.0-14.8 [facility] Comment on above: Performed By: #### C MP, SCAN CBC, ETOH #### [facility] [address] Erythrocytes [#/area] in Uri ne sediment by Automated countOrdered By: Nuno Jones on 09-09-2023 RBC Auto (Urine sed) [#/Area] 1-2 [HPF] 0-4 [facility] Erythrocytes [#/volume] in B lood by Automated countOrdered By: Nuno Jones on 09-09-2023 RBC (Bld) [#/Vol] 4.52 10*6/uL Normal 3.90-5.60 [facility] Comment on above: Performed By: #### C MP, SCAN CBC, ETOH #### [facility] [address] [place] [id number] [place] Ethanol [Mass/volume] in Ser um or PlasmaOrdered By: Nuno Jones on 09-09-2023 Ethanol [Mass/Vol] mg/dL Normal [facility] Comment on above: Performed By: #### C MP, SCAN CBC, ETOH #### [facility] [address] [place] [address] [place] Ethanol [Mass/Vol] TNP [facility] Comment on above: Test not performed Ethyl Alcohol Profileon 08-26 Percent Ethanol Not performed Normal [facility] Comment on above: Result Comment: PERF ORMED BY: [place] [address] PATHOLOGIST HEARING SCREENER WENDY HIDALGO M.D. Performed By: #### C MP, SCAN CBC, ETOH #### [facility] [address] Glucose [Mass/volume] in Ser um or PlasmaOrdered By: Nuno Jones on 09-09-2023 Glucose [Mass/Vol] 99 mg/dL Normal 70-100 [facility] Comment on above: ADA recommended refe rence rangeRandom Glucose Reference Range is dependent on time and content of last meal. Glucose of more than 200 mg/dL in a nonstressed, ambulatory subject supports the diagnosis of Diabetes Mellitus. Result Comment: [place] om Glucose Reference Range is dependent on time and content of last meal. Glucose of more than 200 mg/dL in a nonstressed, ambulatory subject supports the diagnosis of Diabetes Mellitus. ADA recommended reference range Performed By: #### C MP, SCAN CBC, ETOH #### [facility] [address] [place] [id number] [place] Glucose [Mass/volume] in Uri ne by Test stripOrdered By: Nuno Jones on 09-09-2023 Glucose Test strip (U) [Mass/Vol] Normal mg/dL Normal [facility] Hematocrit [Volume Fraction] of Blood by Automated countOrdered By: Nuno Jones on 09-09-2023 Hematocrit (Bld) [Volume fraction] 41.2 % Normal 38.8-50.0 [facility] Comment on above: Performed By: #### C MP, SCAN CBC, ETOH #### [facility] [address] Hemoglobin Test strip Ql (U) Ordered By: Nuno Jones on 09-09-2023 Hemoglobin Ql (U) Negative Negative [facility] Hemoglobin [Mass/volume] in BloodOrdered By: Nuno Jones on 09-09-2023 Hemoglobin (Bld) [Mass/Vol] 14.2 g/dL Normal 13.0-17.0 [facility] Comment on above: Performed By: #### C MP, SCAN CBC, ETOH #### [facility] [address] [place] [address] [place] Hyaline casts [#/area] in Ur ine sediment by Automated countOrdered By: Nuno Jones on 09-09-2023 Hyaline casts Auto (Urine sed) [#/Area] None [LPF] 0-8 [facility] Ketones [Presence] in Urine by Test stripOrdered By: Nuno Jones on 09-09-2023 Ketones Ql (U) Negative Normal Negative [facility] Comment on above: Order Comment: Name Collection Type:: Clean-Voided Midstream Performed By: #### U RDS, ADDONUAPLUS ####[facility] [id number] [place] [address] [place] Leukocyte esterase [Presence ] in Urine by Test stripOrdered By: Nuno Jones on 09-09-2023 Leukocyte esterase Test strip Ql (U) Negative Normal Negative [facility] Comment on above: Order Comment: Name Collection Type:: Clean-Voided Midstream Performed By: #### U RDS, ADDONUAPLUS ####[facility] [id number] [place] [address] [place] Leukocytes [#/area] in Urine sediment by Automated countOrdered By: Nuno Jones on 09-09-2023 WBC Auto (Urine sed) [#/Area] 5-9 [HPF] 0-4 [facility] Leukocytes [#/volume] correc ofe for nucleated erythrocytes in Blood by Automated counOrdered By: Nuno Jones on 09-09-2023 WBC corrected for nucl RBC Auto (Bld) [#/Vol] 10.9 10*3/uL 4.1-10.5 [facility] Leukocytes [#/volume] in Blo od by Automated countOrdered By: Nuno Jones on 09-09-2023 WBC (Bld) [#/Vol] 10.9 10*3/uL High 4.1-10.5 [facility] Comment on above: Performed By: #### C MP, SCAN CBC, ETOH #### [facility] [address] [place] [address] [place] Lymphocytes [#/volume] in Bl ood by Automated countOrdered By: Nuno Jones on 09-09-2023 Lymphocytes (Bld) [#/Vol] 1.9 10*3/uL Normal 1.00-4.8 [facility] Comment on above: Performed By: #### C MP, SCAN CBC, ETOH #### [facility] [address] [place] [address] [place] Lymphocytes/100 leukocytes i n Blood by Automated countOrdered By: Nuno Jones on 09-09-2023 Lymphocytes/100 WBC (Bld) 17.9 % Normal . [facility] Comment on above: Performed By: #### C MP, SCAN CBC, ETOH #### [facility] [address] [place] [address] [place] MCH [Entitic mass] by Automa ofe countOrdered By: Nuno Jones on 09-09-2023 MCH (RBC) [Entitic mass] 31.5 pg Normal 27.5-35.2 [facility] Comment on above: Performed By: #### C MP, SCAN CBC, ETOH #### [facility] [address] [place] [address] MCHC Auto (RBC) [Mass/Vol]Or dered By: Nuno Jones on 09-09-2023 MCHC (RBC) [Mass/Vol] 34.5 g/dL 32.5-35.6 [facility] MCV [Entitic volume] by Auto mated countOrdered By: Nuno Jones on 09-09-2023 MCV (RBC) [Entitic vol] 91.3 fL Normal 83.5-101 F [facility] Comment on above: Performed By: #### C MP, SCAN CBC, ETOH #### [facility] [address] [place] [address] [place] Monocyte distribution width [Entitic volume] in Blood by AutomatedOrdered By: Nuno Jones on 09-09-2023 Monocyte distribution width Auto (Bld) [Entitic vol] 19.84 % 0.00-20.00 [facility] Mucus [Presence] in Urine by AutomatedOrdered By: Nuno Jones on 09-09-2023 Mucus Auto Ql (U) Rare [LPF] [facility] Neutrophils [#/volume] in Bl ood by Automated countOrdered By: Nuno Jones on 09-09-2023 Neutrophils (Bld) [#/Vol] 7.9 10*3/uL High 1.8-7.7 [facility] Comment on above: Performed By: #### C MP, SCAN CBC, ETOH #### [facility] [address] Nitrite Test strip Ql (U)Ord ered By: Nuno Jones on 09-09-2023 Nitrite Ql (U) Negative Negative [facility] No Panel InformationOrdered By: Nuno Jones on 09-09-2023 Estimated GFR (CKD-EPI) > 60.0 mL/Min [facility] Creatinine Clearance (Chem 99.97 [facility] Nucleated erythrocytes [Pres ence] in Blood by Automated countOrdered By: Nuno Jones on 09-09-2023 Nucleated RBC Auto Ql (Bld) 0.1 /100{WBC} 0-0.5 [facility] Opiates [Presence] in Urine by Screen methodOrdered By: Nuno Jones on 09-09-2023 Opiates Screen Ql (U) Negative Negative [facility] Phencyclidine Screen Ql (U)O rdered By: Nuno Jones on 09-09-2023 Phencyclidine Ql (U) Negative Negative [facility] Platelet adequacy [Presence] in Blood by Light microscopyOrdered By: Nuno Jones on 09-09-2023 Platelets LM Ql (Bld) Normal Normal [facility] Platelet mean volume [Entiti c volume] in Blood by Automated countOrdered By: Nuno Jones on 09-09-2023 Platelet mean volume (Bld) [Entitic vol] 7.3 fL Normal 6.6-10.1 [facility] Comment on above: Performed By: #### C MP, SCAN CBC, ETOH #### [facility] [address] Platelet morphology finding [Identifier] in BloodOrdered By: Nuno Jones on 09-09-2023 Platelet morphology finding Nom (Bld) Normal Normal [facility] Platelets [#/volume] in Bloo d by Automated countOrdered By: Nuno Jones on 09-09-2023 Platelets (Bld) [#/Vol] 340 10*3/uL Normal 150-450 [facility] Comment on above: Performed By: #### C MP, SCAN CBC, ETOH #### [facility] [address] [place] [address] [place] Potassium [Moles/volume] in Serum or PlasmaOrdered By: Nuno Jones on 09-09-2023 Potassium [Moles/Vol] 4.4 mmol/L Normal 3.5-5.1 [facility] Comment on above: Performed By: #### C MP, SCAN CBC, ETOH #### [facility] [address] [place] [address] [place] Protein Test strip (U) [Mass /Vol]Ordered By: Nuno Jones on 09-09-2023 Protein (U) [Mass/Vol] Negative Negative [facility] Protein [Mass/volume] in Ser um or PlasmaOrdered By: Nuno Jones on 09-09-2023 Protein [Mass/Vol] 7.1 g/dL Normal 6.4-8.9 [facility] Comment on above: Performed By: #### C MP, SCAN CBC, ETOH #### [facility] [address] [place] [address] [place] RBC morphologyOrdered By: Tyson Jones on 09-09-2023 RBC morphology finding Nom (Bld) Normal Normal Normal [facility] Comment on above: Performed By: #### C MP, SCAN CBC, ETOH #### [place] [address] [place] Scan and CBCon 09-09-2023 Mean Corpuscular HGB Conc 34.5 g/dL Normal 32.5-35.6 [facility] Comment on above: Performed By: #### C MP, SCAN CBC, ETOH #### [facility] [address] Monocytes/100 WBC (Bld) 19.84 % Normal 0.00-20.00 [facility] Comment on above: Performed By: #### C MP, SCAN CBC, ETOH #### [address] NRBC% 0.1 /100{WBC} Normal 0-0.5 [facility] Comment on above: Performed By: #### C MP, SCAN CBC, ETOH #### [address] Platelet Estimate Normal Normal Normal [facility] Comment on above: Performed By: #### C MP, SCAN CBC, ETOH #### [address] Platelet Morphology Normal Normal Normal [facility] Comment on above: Result Comment: PERF ORMED BY: [place] [address] PATHOLOGIST HEARING SCREENER WENDY HIDALGO M.D. Performed By: #### C MP, SCAN CBC, ETOH #### [address] Toxic Vacuolation Slight Normal [facility] Comment on above: Performed By: #### C MP, SCAN CBC, ETOH #### [address] Serum globulin measurement b y calculation (mass/volume)Ordered By: Nuno Jones on 09-09-2023 Globulin (S) [Mass/Vol] 2.7 g/dL Normal F [facility] Comment on above: Performed By: #### C MP, SCAN CBC, ETOH #### [facility] [address] [place] [address] Serum or plasma albumin/glob ulin mass ratioOrdered By: Nuno Jones on 09-09-2023 Albumin/Globulin [Mass ratio] 1.6 {ratio} Normal [facility] Comment on above: Performed By: #### C MP, SCAN CBC, ETOH #### [address] Serum or plasma anion gap de terminationOrdered By: Nuno Jones on 09-09-2023 Anion gap [Moles/Vol] 9.1 mmol/L Normal 6.0-15.0 [facility] Comment on above: Performed By: #### C MP, SCAN CBC, ETOH #### [address] Sodium [Moles/volume] in Ser um or PlasmaOrdered By: Nuno Jones on 09-09-2023 Sodium [Moles/Vol] 141 mmol/L Normal 136-145 [facility] Comment on above: Performed By: #### C MP, SCAN CBC, ETOH #### [address] Specific gravity Test strip (U) [Rel density]Ordered By: Nuno Jones on 09-09-2023 Specific gravity (U) [Rel density] 1.018 1.001-1.030 [facility] Toxic leukocyte vacuolation detectionOrdered By: Nuno Jones on 09-09-2023 Leukocyte toxic vacuoles LM Ql (Bld) Slight [facility] Urea nitrogen [Mass/volume] in Serum or PlasmaOrdered By: Nuno Jones on 09-09-2023 Urea nitrogen [Mass/Vol] 15 mg/dL Normal 7-25 [facility] Comment on above: Performed By: #### C MP, SCAN CBC, ETOH #### [address] Urine appearanceOrdered By: Nuno Jones on 09-09-2023 Appearance (U) Cloudy Critically abnormal Clear [facility] Comment on above: Order Comment: Name Collection Type:: Clean-Voided Midstream Performed By: #### U BRANDY, ADDONUAPLUS ####[facility] [address] Urobilinogen Test strip (U) [Mass/Vol]Ordered By: Nuno Jones on 09-09-2023 Urobilinogen (U) [Mass/Vol] 2 mg/dL Normal [facility] pH of Urine by Test stripOrd ered By: Nuno Jones on 09-09-2023 pH (U) 5.5 [pH] Normal 5.0-9.0 [facility] Comment on above: Order Comment: Name Collection Type:: Clean-Voided Midstream Performed By: #### U BRANDY, ADDONUAPLUS ####[facility] [address] XR scapula LT*on 01-11-2023 XR scapula LT* [place] [address] XRay Report Signed Patient: Estrada Fontaine MR#: [id number] 371 : 1985 Acct:[id number] Age/Sex: 37 / M ADM Date: 01/11/23 Loc: [facility] Room: Type: [facility] Attending Dr: Iván Lowe DO Copies to: Iván Lowe DO Ordering Provider: Iván Lowe DO Date of Service: 01/11/23 XR/XR scapula LT*: Closed nondisplaced fracture of body of left scapula, initia XR scapula LT* 01/11/2023 9:59 AM SIGNS AND SYMPTOMS: Follow-up fracture of left scapular body PROTOCOL: Frontal and scapular Y views of the left shoulder/scapula COMPARISON: 12/14/2022 FINDINGS: There is a minimally displaced fracture of the body of the scapula without change in alignment. There is increasing periosteal new bone formation consistent with interval healing. Healing remains incomplete. The left shoulder is grossly intact. The visualized left hemithorax is grossly intact. XR/XR scapula LT* IMPRESSION: Continued healing of a minimally displaced fracture of the body of the scapula on the left without change in alignment. Healing remains incomplete. Impression dictated by: Venkata Sellers M.D.01/11/2023 3:26 PM Dictation Location: [place] [address] Transcribed By: [facility] 01/11/23 1526 Dictated By: Venkata Sellers II, MD 01/11/23 152 Signed By: 01/11/231525 Normal [facility] XR scapula LT* [facility] [employer] Other XR scapula LT* [facility] [employer] Other XR scapula LT* [address] [place] [address] [employer] Other XR scapula LT* [place] [address] No [facility] [employer] Other XR scapula LT* XRay Report [employer] Other XR scapula LT* Signed [employer] Other XR scapula LT* Patient: Estrada Fontaine MR#: [id number] [employer] Other XR scapula LT* 371 [employer] Other XR scapula LT* : 1985 Acct:[id number] [employer] Other XR scapula LT* Age/Sex: 37 / M ADM Date: 01/11/23 [employer] Other XR scapula LT* Loc: [facility] Room: Type : [facility] [employer] Other XR scapula LT* Attending Dr: Iván Lowe DO [employer] Other XR scapula LT* Copies to: Iván Lowe DO [employer] Other XR scapula LT* Ordering Provider: Iván Lowe DO [employer] Other XR scapula LT* Date of Service: 01/11/23 [employer] Other XR scapula LT* XR/XR scapula LT*: Closed nondisplaced fracture of body of left scapula, [employer] Other XR scapula LT* initia [employer] Other XR scapula LT* XR scapula LT* 01/11/2023 9:59 AM [employer] Other XR scapula LT* SIGNS AND SYMPTOMS: Follow-up fracture of left scapular body [employer] Other XR scapula LT* PROTOCOL: Frontal an d scapular Y views of the left shoulder/scapula [employer] Other XR scapula LT* COMPARISON: 12/14/2022 [employer] Other XR scapula LT* FINDINGS: [employer] Other XR scapula LT* There is a minimally displaced fracture of the body of the scapula without change in alignment. [employer] Other XR scapula LT* There is increasing periosteal new bone formation consistent with interval healing. Healing remains [employer] Other XR scapula LT* incomplete. The left shoulder is grossly intact. The visualized left hemithorax is grossly intact. [employer] Other XR scapula LT* XR/XR scapula LT* [employer] Other XR scapula LT* IMPRESSION: [employer] Other XR scapula LT* Continued healing of a minimally displaced fracture of the body of the scapula on the left without [employer] Other XR scapula LT* change in alignment. Healing remains incomplete. [employer] Other XR scapula LT* Impression dictated by: Venkata Sellers M.D.01/11/2023 3:26 PM [employer] Other XR scapula LT* Dictation Location: [facility] [facility] [employer] Other XR scapula LT* Transcribed By: [facility] 01/11/23 [facility] [employer] Other XR scapula LT* Dictated By: Venkata Sellers II, MD 01/11/23 1525 [employer] Other XR scapula LT* Signed By: [employer] Other XR scapula LT* 01/11/23 1526 [employer] Other XR scapula LT*on 12-14-2022 XR scapula LT* [facility] [employer] Other XR scapula LT* [facility] [employer] Other XR scapula LT* [address] [place] [address] [employer] Other XR scapula LT* [place] [address] No rt [employer] Other XR scapula LT* XRay Report [employer] Other XR scapula LT* Signed [employer] Other XR scapula LT* Patient: Estrada Fontaine MR#: [id number] [facility] [employer] Other XR scapula LT* 371 [employer] Other XR scapula LT* : 1985 Acct:[id number] [employer] Other XR scapula LT* Age/Sex: 37 / M ADM Date: 12/14/22 [employer] Other XR scapula LT* Loc: [facility] Room: Type : [facility] [employer] Other XR scapula LT* Attending Dr: Iván Lowe DO [employer] Other XR scapula LT* Copies to: Iván Lowe, DO [employer] Other XR scapula LT* Ordering Provider: Iván Lowe, DO [employer] Other XR scapula LT* Date of Service: 12/14/22 [employer] Other XR scapula LT* XR/XR scapula LT*: Closed nondisplaced fracture of body of left scapula, [employer] Other XR scapula LT* initia [employer] Other XR scapula LT* XR scapula LT* 12/14/2022 9:37 AM [employer] Other XR scapula LT* SIGNS AND SYMPTOMS: Follow-up fracture of the left scapula [employer] Other XR scapula LT* PROTOCOL: Frontal an d scapular Y views of the left shoulder [employer] Other XR scapula LT* COMPARISON: CT 11/21/2022 and radiographs of the left shoulder 11/21/2022 [employer] Other XR scapula LT* FINDINGS: [employer] Other XR scapula LT* There is only partia l visualization of a healing fracture of the body of the scapula best seen on [employer] Other XR scapula LT* frontal radiograph. There is no change in alignment. The glenohumeral joint and acromioclavicular [employer] Other XR scapula LT* joint are preserved. Os acromiale is redemonstrated which is a normal variant. [employer] Other XR scapula LT* XR/XR scapula LT* [employer] Other XR scapula LT* IMPRESSION: [employer] Other XR scapula LT* Partial visualizatio n of a healing fracture of the body of the scapula shows no change in alignment. [employer] Other XR scapula LT* Os acromiale is redemonstrated which is a normal variant. [employer] Other XR scapula LT* Impression dictated by: Venkata Sellers M.D.12/14/2022 12:21 PM [employer] Other XR scapula LT* Dictation Location: [place] [address] [employer] Other XR scapula LT* Transcribed By: [facility] 12/14/22 1221 [employer] Other XR scapula LT* Dictated By: Venkata Sellers II, MD 12/14/22 1217 [employer] Other XR scapula LT* Signed By: [employer] Other XR scapula LT* 12/14/22 1221 [employer] Other XR scapula LT* [place] [address] [place] [address] XRay Report Signed Patient: Estrada Fontaine MR#: [id number] 371 : 1985 Acct:[id number] Age/Sex: 37 / M ADM Date: 12/14/22 Loc: [facility] Room: Type: [facility] Attending Dr: Iván Lowe DO Copies to: Iván Lowe DO Ordering Provider: Iván Lowe DO Date of Service: 12/14/22 XR/XR scapula LT*: Closed nondisplaced fracture of body of left scapula, initia XR scapula LT* 12/14/2022 9:37 AM SIGNS AND SYMPTOMS: Follow-up fracture of the left scapula PROTOCOL: Frontal and scapular Y views of the left shoulder COMPARISON: CT 11/21/2022 and radiographs of the left shoulder 11/21/2022 FINDINGS: There is only partial visualization of a healing fracture of the body of the scapula best seen on frontal radiograph. There is no change in alignment. The glenohumeral joint and acromioclavicular joint are preserved. Os acromiale is redemonstrated which is a normal variant. XR/XR scapula LT* IMPRESSION: Partial visualization of a healing fracture of the body of the scapula shows no change in alignment. Os acromiale is redemonstrated which is a normal variant. Impression dictated by: Venkata Sellers M.D.12/14/2022 12:21 PM Dictation Location: [place] [address] Transcribed By: [facility] 12/14/22 1221 Dictated By: Venkata Sellers II, MD 12/14/22 1217 Signed By: 12/14/22 1221 Normal [facility] AMYLASEon 05-21-2020 Amylase [Catalytic activity/Vol] 73 U/L Normal 31-110 [facility] Comment on above: Performed By: #### B MP, LIVER, MELONY, LIPA, CRP #### [facility] [address] [place] [address] Shola Abbi CBC AUTO DIFFon 05-21-2020 Basophils (Bld) [#/Vol] 0.0 103/ul Normal 0.0-0.1 [facility] Comment on above: Performed By: #### C BC #### [facility] [address] [place] [address] Shola Abbi Basophils/100 WBC (Bld) 0.4 % Normal 0.2-2.0 [facility] Comment on above: Performed By: #### C BC #### [facility] [address] [place] [address] Shola Abbi Eosinophils (Bld) [#/Vol] 0.2 103/ul Normal 0.0-0.7 [facility] Comment on above: Performed By: #### C BC #### [facility] [address] [place] [address] Shola Abbi Eosinophils/100 WBC (Bld) 2.5 % Normal 0.9-7.0 [facility] Comment on above: Performed By: #### C BC #### [facility] [address] [place] [id number] Shola Abbi Erythrocyte distribution width (RBC) [Ratio] 13.3 % Normal 11.0-15.0 [facility] Comment on above: Performed By: #### C BC #### [facility] [address] [place] [id number] Shola Abbi Hematocrit (Bld) [Volume fraction] 42.9 % Normal 42.0-54.0 [facility] Comment on above: Performed By: #### C BC #### [facility] [address] [place] [id number] Shola Abbi Hemoglobin (Bld) [Mass/Vol] 14.2 g/dL Normal 14.0-18.0 [facility] Comment on above: Performed By: #### C BC #### [facility] [address] [place], [place] [id number] Shola Abbi IG # 0.03 10e3/ul Normal 0.00-0.03 [facility] Comment on above: Performed By: #### C BC #### [facility] [address] [place] [id number] Shola Abbi IG % 0.3 % Normal 0.0-0.5 [facility] Comment on above: Performed By: #### C BC #### [facility] [address] [place] [address] Shola Abbi Lymphocytes (Bld) [#/Vol] 3.8 103/ul Normal 1.2-3.8 [facility] Comment on above: Performed By: #### C BC #### [facility] [address] [place], [place] [id number] Shola Abbi Lymphocytes/100 WBC (Bld) 40.3 % Normal 20.5-60.0 [facility] Comment on above: Performed By: #### C BC #### [facility] [address] [id number] Shola Abbi MANUAL DIFF REQ NO Normal [facility] Comment on above: Performed By: #### C BC #### [facility] [address] [place], [place] [address] Shola Abbi MCH (RBC) [Entitic mass] 29.6 pg Normal 25.9-34.0 [facility] Comment on above: Performed By: #### C BC #### [facility] [address] [place] [address] Shola Abbi MCHC (RBC) [Mass/Vol] 33.1 g/dL Normal 29.9-35.2 [facility] Comment on above: Performed By: #### C BC #### [facility] [address] [place] [address] Shola Abbi MCV (RBC) [Entitic vol] 89.6 fL Normal 80.0-94.0 [facility] Comment on above: Performed By: #### C BC #### [facility] [address] [place] [address] Shola Abbi Monocytes (Bld) [#/Vol] 0.6 103/ul Normal 0.3-0.8 [facility] Comment on above: Performed By: #### C BC #### [facility] [address] [place] [address] Shola Abbi Monocytes/100 WBC (Bld) 6.3 % Normal 1.7-12.0 [facility] Comment on above: Performed By: #### C BC #### [facility] [address] [place] [address] Shola Abbi Neutrophils (Bld) [#/Vol] 4.7 103/ul Normal 1.4-6.5 [facility] Comment on above: Performed By: #### C BC #### [facility] [address] [place] [address] Shola Abbi Neutrophils/100 WBC (Bld) 50.2 % Normal 43.0-75.0 [facility] Comment on above: Performed By: #### C BC #### [facility] [address] [place] [address] Shola Abbi Platelet mean volume (Bld) [Entitic vol] 9.4 fL Critically low 9.5-13.5 [facility] Comment on above: Performed By: #### C BC #### [facility] [address] [place], [place] [address] Shola Go Platelets (Bld) [#/Vol] 308 103/ul Normal 150-450 [facility] Comment on above: Performed By: #### C BC #### [facility] [address] [place] [address] Shola Go RBC (Bld) [#/Vol] 4.79 106/ul Normal 4.70-6.10 [facility] Comment on above: Performed By: #### C BC #### [facility] [address] [place], [place] [id number] Shola Go WBC (Bld) [#/Vol] 9.3 103/ul Normal 4.0-11.0 [facility] Comment on above: Performed By: #### C BC #### [facility] [address] [place], [place] [id number] Shola Go CRPon 05-21-2020 CRP [Mass/Vol] mg/L Normal <=1.0 [facility] Comment on above: Performed By: #### T HRTCX, SSCRN #### [facility] [address] [place], [place] [id number] Shola Go CULTURE THROATon 05-21-2020 CULTURE THROAT Culture Observations : NORMAL RESPIRATORY ESPERANZA. Normal [facility] Comment on above: Performed By: #### T HRTCX, SSCRN #### [facility] [address] [place], [place] [id number] Shola Go INFLUENZA A AND B AGon 05-21 INFLUANEGH SEE BELOW Normal [facility] Comment on above: Result Comment: Nega tive for Flu A protein angiten. Infection due to Flu A cannot be ruled out. Flu A angiten in the sample may be below the detection limit of the test. Performed By: #### I NFLUAB #### [facility] [address] [place] [address] Sholaallan Renaeen INFLUBNEGH SEE BELOW Normal [facility] Comment on above: Result Comment: Nega tive for Flu B protein antigen. Infection due to Flu B cannot be ruled out. Flu B antigen in the sample may be below the detection limit of the test. Performed By: #### I NFLUAB #### [facility] [address] [place] [address] Shola Go INFLUENZA A AG Negative Normal NEGATIVE SEE COMMENT [facility] Comment on above: Performed By: #### I NFLUAB #### [facility] [address] [place] [address] Shola Go INFLUENZA B AG Negative Normal NEGATIVE SEE COMMENT [facility] Comment on above: Performed By: #### I NFLUAB #### [facility] [address] [place] [address] Shola Go INTERNAL CONTROLS Within Normal Limits Normal Wi thin Normal Limits [facility] Comment on above: Performed By: #### I NFLUAB #### [facility] [address] [place] [address] Shola Go LACTATE/LACTIC ACIDon 2020 Lactate [Moles/Vol] mmol/L Critically low 0.7-2.0 [facility] Comment on above: Performed By: #### L ACT #### [facility] [address] [place] [address] Shola Go LIPASEon 05-21-2020 Lipase [Catalytic activity/Vol] 167.0 U/L Normal 23.0-300.0 [facility] Comment on above: Performed By: #### B MP, LIVER, MELONY, LIPA, CRP #### [facility] [address] [place] [address] Sholaallan Go LIVER PROFILEon 05-21-2020 Albumin [Mass/Vol] 4.0 g/dL Normal 3.5-5.0 [facility] Comment on above: Performed By: #### B MP, LIVER, MELONY, LIPA, CRP #### [facility] [address] [place] [address] Abbi Albumin/Globulin [Mass ratio] 1.3 {ratio} Normal [facility] Comment on above: Performed By: #### B MP, LIVER, MELONY, LIPA, CRP #### [facility] [address] [place] [address] Shola Abbi ALP [Catalytic activity/Vol] 48 U/L Normal 38-126 [facility] Comment on above: Performed By: #### B MP, LIVER, MELONY, LIPA, CRP #### [facility] [address] [address] Shola Abbi ALT [Catalytic activity/Vol] 23 U/L Normal 21-72 [facility] Comment on above: Performed By: #### B MP, LIVER, MELONY, LIPA, CRP #### [facility] [address] [place] [address] Shola Abbi AST [Catalytic activity/Vol] 15 U/L Critically low 17-59 [facility] Comment on above: Performed By: #### B MP, LIVER, MELONY, LIPA, CRP #### [facility] [address] [place] [address] Shola Abbi BILI, CONJUGATED 0.0 mg/dL Normal 0.0-0.3 [facility] Comment on above: Performed By: #### B MP, LIVER, MELONY, LIPA, CRP #### [facility] [address] [place] [address] Shola Abbi Bilirubin Ql (U) 0.3 mg/dL Normal 0.2-1.3 [facility] Comment on above: Performed By: #### B MP, LIVER, MELONY, LIPA, CRP #### [facility] [address] [place] [address] Shola Abbi Globulin (S) [Mass/Vol] 3.2 g/dL Normal T [facility] Comment on above: Performed By: #### B MP, LIVER, MELONY, LIPA, CRP #### [facility] [address] [place] [address] Shola Abbi Protein [Mass/Vol] 7.2 g/dL Normal 6.1-8.2 [facility] Comment on above: Performed By: #### B MP, LIVER, MELONY, LIPA, CRP #### [facility] [address] [place] [address] Shola Go PROF CHEM 8 (BAS METB)on Anion gap [Moles/Vol] 7.4 mmol/L Normal [facility] Comment on above: Performed By: #### B MP, LIVER, MELONY, LIPA, CRP #### [facility] [address] [address] Shola Abbi Calcium [Mass/Vol] 9.1 mg/dL Normal 8.4-10.2 [facility] Comment on above: Performed By: #### B MP, LIVER, MELONY, LIPA, CRP #### [facility] [address] [address] Shola Abbi Chloride [Moles/Vol] 102 mmol/L Normal 98-107 [facility] Comment on above: Performed By: #### B MP, LIVER, MELONY, LIPA, CRP #### [facility] [address] [place] [address] Shola Abbi CO2 [Moles/Vol] 33.2 mmol/L Critically high 22.0-30.0 [facility] Comment on above: Performed By: #### B MP, LIVER, MELONY, LIPA, CRP #### [facility] [address] [address] Shola Abbi Creatinine [Mass/Vol] 1.32 mg/dL Critically high 0.66-1.25 [facility] Comment on above: Performed By: #### B MP, LIVER, MELONY, LIPA, CRP #### [facility] [address] [address] Shola Abbi EGFR-AF CITIZEN [place] >60 Normal >=60 [facility] Comment on above: Performed By: #### B MP, LIVER, MELONY, LIPA, CRP #### [facility] [address] [address] Shola Abbi EGFR-NON AF CITIZEN OF [place] >60 Normal >=60 [facility] Comment on above: Performed By: #### B MP, LIVER, MELONY, LIPA, CRP #### [facility] [address] [address] Shola Abbi Glucose [Mass/Vol] 99 mg/dL Normal 74-106 [facility] Comment on above: Performed By: #### B MP, LIVER, MELONY, LIPA, CRP #### [facility] [address] [address] Shola Abbi Potassium [Moles/Vol] 3.6 mmol/L Normal 3.4-5.0 [facility] Comment on above: Performed By: #### B MP, LIVER, MELONY, LIPA, CRP #### [facility] [address] [address] Shola Abbi Sodium [Moles/Vol] 139 mmol/L Normal 137-145 [facility] Comment on above: Performed By: #### B MP, LIVER, MELONY, LIPA, CRP #### [facility] [address] [address] Shola Abbi Urea nitrogen [Mass/Vol] 21.0 mg/dL Critically high 9.0-20.0 [facility] Comment on above: Performed By: #### B MP, LIVER, MELONY, LIPA, CRP #### [facility] [address] [address] Shola Abbi Urea nitrogen/Creatinine [Mass ratio] 15.9 mg/mg Normal [facility] Comment on above: Performed By: #### B MP, LIVER, MELONY, LIPA, CRP #### [facility] [address] [id number] Shola Abbi STREPT SCREENon 05-21-2020 STREP SCREEN A Negative Normal NEGATIVE [facility] Comment on above: Performed By: #### T HRTCX, SSCRN #### [facility] [address] [id number] Shola Abbi Vital Signs Date Time Vital Sign Value Performing Clinician Facility 09-15-2023 07:34-0400 Body temperature 97.7 [degF] PHYSICIAN NO [facility] 09-15-2023 07:34-0400 Diastolic blood pressure 73 mm[Hg] PHYSICIAN NO [facility] 09-15-2023 07:34-0400 Heart rate 64 /min PHYSICIAN NO [facility] 09-15-2023 07:34-0400 Respiratory rate 18 /min PHYSICIAN NO [facility] 09-15-2023 07:34-0400 SaO2% (BldA) [Mass fraction] 99 % PHYSICIAN NO [facility] 09-15-2023 07:34-0400 Systolic blood pressure 130 mm[Hg] PHYSICIAN NO [facility] 09-12-2023 09:00-0400 Body weight 98.88 kg PHYSICIAN NO [facility] 09-10-2023 11:41-0400 Body height 187.96 cm PHYSICIAN NO [facility] 09-09-2023 14:55-0400 Body height 187.96 cm PHYSICIAN NO [facility] 09-09-2023 14:55-0400 Body temperature 98.2 [degF] PHYSICIAN NO [facility] 09-09-2023 14:55-0400 Body weight 100.75 kg PHYSICIAN NO [facility] 09-09-2023 14:55-0400 Diastolic blood pressure 88 mm[Hg] PHYSICIAN NO [facility] 09-09-2023 14:55-0400 Heart rate 78 /min PHYSICIAN NO [facility] 09-09-2023 14:55-0400 Respiratory rate 18 /min PHYSICIAN NO [facility] 09-09-2023 14:55-0400 SaO2% (BldA) [Mass fraction] 97 % PHYSICIAN NO [facility] 09-09-2023 14:55-0400 Systolic blood pressure 162 mm[Hg] PHYSICIAN NO [facility] 11-23-2022 09:00-0400 Body height 187.96 cm Iván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 Encounter Date Diagnosis Assessment Notes Treatment Notes Treatment Clinical Notes Dec, Closed nondisplaced fracture of body of left scapula, initial encounter (ICD-10 - S42.115A) Radiographs reviewed with patient today. Discussed with patient to continue with physical therapy to help improve overall strength and stability. He is also instructed to do the exercises on his own for maximum effect. He can follow-up on an as-needed basis at this time. Instructed to call with any questions or concerns [facility] Other 09-19-2023 Evaluation note* Encounter Date Diagnosis Assessment Notes Treatment Notes Treatment Clinical Notes Nov, Closed nondisplaced fracture of body of left scapula, initial encounter (ICD-10 - S42.115A) Patient doing well relatively. We will begin therapy to help work on range of motion. We will wait 2 more weeks, at the 6-week venkata from the injury before we start gradual strengthening of the shoulder. I will see him back in 4 weeks, where we can hopefully progress his therapy at that time. Follow-up 4 weeks with x-ray. [facility] Other 08-29-2023 Evaluation note* Encounter Date Diagnosis Assessment Notes Treatment Notes Treatment Clinical Notes Oct, Closed nondisplaced fracture of body of left scapula, initial encounter (ICD-10 - S42.115A) Patient has sufferred a scapula fracture. We will treat this non-operativley. We discussed use of a sling. We discussed and demonstrated active elbow and wrist motion exercise as well as passive pendulum shoulder motion with progression to active motion as pain allows. Early healing can be expected by 6 weeks post injury. Instructed patient to call if he will need an off work note. Patient given prescription for oxycodone [facility] Other Chief complaint+Reason for visit Narrative* Chief Complaint medical clearance [facility] Work Phone: Chief complaint+Reason for visit Narrative* Chief Complaint medical clearance Reason for Visit Depression [facility] Work Phone: Chief complaint+Reason for visit Narrative* Chief Complaint medical clearance medical clearance Reason for Visit Depression Unspecified psychosis [facility] Work Phone: Evaluation noteNo assessment information available [facility] Work Phone: Evaluation note* Diagnosis Onset Date Resolution Status Depression acute [facility] Work Phone: Evaluation note* Diagnosis Onset Date Resolution Status Depression acute Unspecified psychosis acute [facility] Work Phone: Summary Purpose Family History No Family History Records Found Relationship Condition Age at Onset Recorded Date/T amy family member Unknown Advance Directives No Advanced Directives Records Found Advance Directive Response Recorded Date/ Time Advance Directives No November 10:18am Advance Directive Response Recorded Date/ Time Advance Directives No November 8:35am Advance Directive Response Recorded Date/ Time Advance Directives No November 7:35am Chief Complaint and Reason for Visit Chief Complaint S42.115A non displacement of Left Shoulder Chief Complaint S42.115A s42.115a non displacement of Left Shoulder Additional Source Comments (unrecognized sect ion and content) No Status Records FoundNo Status Records FoundNo Status Records FoundNo Status Records FoundNo Status Records Found INFORMATION SOURCE (unrecogn ized section and content) DATE CREATED AUTHOR 05/27/2020 [facility] DATE CREATED AUTHOR AUTHOR'S ORGANIZ ATION 10/16/2023 [facility] DATE CREATED AUTHOR AUTHOR'S ORGANIZ ATION 10/28/2023 [facility] DATE CREATED AUTHOR AUTHOR'S ORGANIZ ATION 11/14/2023 [facility] DATE CREATED AUTHOR AUTHOR'S ORGANIZ ATION 12/03/2023 [facility] REASON FOR VISIT (unrecogniz ed section and content) Left Scapular FractureRechec k Left ScapulaRecheck Left Scapula Care Teams (unrecognized sec tion and content) Team Status: Active Member Role Status Dates PHYSICIAN NO FAMILY Primary Care Provider Active Team Status: Inactive Member Role Status Dates PHYSICIAN NO FAMILY Primary Care Provider Active Start: September 09, 2023 End: September 15, 2023 Nuno Jones DO Emergency Provider Active St art: September 09, 2023 End: September 15, 2023 Musa Desai MD Admit Provider, Atte nding Provider Active Start: September 09, 2023 End: September 15, 2023 Team Status: Active Member Role Status Dates PHYSICIAN NO FAMILY Primary Care Provider Active Start: September 10, 2023 Nuno Jones DO Emergency Provider Active St art: September 10, 2023 Musa Desai MD Admit Provider, Attjose nding Provider, Other Provider Active Start: September 10, 2023 Team Status: Active Member Role Status Dates PHYSICIAN NO FAMILY Primary Care Provider Active Start: September 09, 2023 Nuno Jones DO Emergency Provider Active St art: September 09, 2023 Musa Desai MD Admit Provider, Attending Provider Active Start: September 09, 2023 Team Status: Active Member Role Status Dates RADHA Christine Primary Care Provider Active Team Status: Inactive Member Role Status Dates Iván Lowe DO Attending Provider Active Team Status: Active Member Role Status Dates NON STAFF Primary Care Provider Active Team Status: Inactive Member Role Status Dates NON STAFF Primary Care Provider Active Iván Lowe DO Attending Provider Active Team Status: Inactive Member Role Status Dates Iván Lowe DO Attending Provider Active NON STAFF Primary Care Provider Active Team Status: Active Member Role Status Dates Iván Lowe DO Attending Provider Active NON STAFF Primary Care Provider Active Team Status: Inactive Member Role Status Dates PHYSICIAN NO FAMILY Primary Care Provider Active Start: September 09, 2023 End: September 09, 2023 Nuno Jones DO Emergency Provider Active St art: September 09, 2023 End: September 09, 2023 Goals (unrecognized section and content) Goals may be documented in a n alternate section FOR RECORDS PERTAINING TO PATIENTS WHO ARE OR HAVE BEEN ENROLLED IN A CHEMICAL DEPENDENCY/SUBSTANCEABUSE PROGRAM, SOME INFORMATION MAY BE OMITTED. This clinical summary was aggregated from multiple sources. Caution should be exercised in using it in the provision of clinical care. This summary normalizes information from multiple sources, and as a consequence, information in this document may materially change the coding, format and clinical context of patient data. In addition, data may be omitted in some cases. CLINICAL DECISIONS SHOULD BE BASED ON THE PRIMARY CLINICAL RECORDS. [facility] provides no warranty or guarantee of the accuracy or completeness of information in this document.
[2023-12-15 10:09] LABS: Basophils Percent Auto 0.5 % (0.2-2.0); Eosinophils Absolute Auto 0.1 10^3/uL (0.0-0.7); Eosinophils Percent Auto 0.9 % (0.9-7.0); Hematocrit 40.4 % (42.0-54.0); Hemoglobin 13.5 g/dL (14.0-18.0); Immature Granulocytes Abs Auto 0.01 10^3/uL (0.00-0.03); Immature Granulocytes Pct Auto 0.2 % (0.0-0.5); Lymphocytes Absolute Auto 1.7 10^3/uL (1.2-3.8); Lymphocytes Percent Auto 30.5 % (20.5-60.0); Mean Corpuscular HGB Conc 33.4 g/dL (29.9-35.2); Mean Corpuscular Volume 89.8 fL (80.0-94.0); Mean Platelet Volume 8.8 fL (9.5-13.5); Monocytes Absolute Auto 0.3 10^3/uL (0.3-0.8); Monocytes Percent Auto 5.8 % (1.7-12.0); Neutrophils Absolute Auto 3.4 10^3/uL (1.4-6.5); Neutrophils Percent Auto 62.1 % (43.0-75.0); Platelet Count 314 10^3/uL (150-450); Red Cell Distribution Width 12.5 % (11.0-15.0); White Blood Count 5.5 10^3/uL (4.0-11.0)
[2023-12-15 10:32] LABS: Percent Iron Saturation 16.5 %
[2023-12-15 10:36] LABS: Estimated Average Glucose 114 mg/dL; Glycohemoglobin A1C 5.6 % (4.5-6.2)
[2023-12-15 10:49] LABS: Alanine Aminotransferase 20 U/L (16-63); Albumin Globulin Ratio 1.3; Albumin Level 3.9 g/dL (3.4-5.0); Alkaline Phosphatase 43 U/L (46-116); Anion Gap 10.7; Aspartate Amino Transferase 15 U/L (15-37); BUN Creatinine Ratio 16.2; Bilirubin Total 0.4 mg/dL (0.2-1.0); Calcium 9.2 mg/dL (8.5-10.1); Carbon Dioxide 29.5 mmol/L (21.0-32.0); Chloride 104 mmol/L (98-107); Chol HDL Ratio 3.9; Cholesterol 211 mg/dL (<=200); Estimated GFR (African America >60 (>=60); Estimated GFR (Non-African Ame >60 (>=60); Globulin 3.1 g/dL; Glucose 100 mg/dL (74-106); HDL Cholesterol 54 mg/dL (40-60); Potassium 4.2 mmol/L (3.5-5.1); Sodium 140 mmol/L (136-145); TSH W/ REFLEX FT4 0.602 uIU/mL (0.358-3.740); Triglycerides 82 mg/dL (<=150); VLDL CHOLESTEROL 16.4 mg/dL
[2023-12-16 03:07] LABS: Vitamin B12 288 pg/mL (232-1245)
== END 2023-12-15 09:39 | disposition home or self-care (01) ==
LOC: LAB 09:40
DX: Z00.00 Encounter for general adult medical examination without abnormal findings (principal); F10.11 Alcohol abuse, in remission; R00.2 Palpitations
CPT/HCPCS: 36415; 80053; 80061; 82306; 82607; 82728; 83036; 83540; 83550; 84443; 84591; 85025